=== PATIENT | female | born 1960 | race Caucasian/White ===

== ENCOUNTER → 2017-10-18 | Outpatient (CLI) | payer BC ==
--- NOTE | 2017-10-18 12:57 | CT ---
EXAMINATION TYPE: CT chest w con DATE OF EXAM: 10/18/2017 COMPARISON: 10/18/2017 HISTORY: Posterior chest pain, painful respiration, history of pleurisy CT DLP: 529 mGycm, Automated exposure control for dose reduction was used. CONTRAST: Performed injected with 100 mL of Isovue 300. TECHNIQUE: Axial images were obtained at 5 mm thick sections. Reconstructed images are reviewed on [employer] computer in the coronal plane. FINDINGS: Portion of the thyroid visualized is normal. Posterior infiltrate is in the right apex. This is similar to 03/11/2014 comparison may be some minimal scarring. There is some new irregular infiltrate in the periphery of the posterior lateral right upper lobe. Se mayela 4 image 15. This has a width of approximately 0.8 cm. There is a 0.4 cm nodule within the right posterior midlung. Series 4 image 22. Same level was 0.6 cm irregular area of increased density is present. Small anterior mediastinal density is present within the lingula measuring 0.3 cm. Series 4 image 22. Some groundglass opacities in the posterior lingula approximately 1.1 cm. Series 4 image 25. Tiny spi culated densities in the anterior lingula measuring 0.4 cm. Series 4 image 25. Posterior lateral nodularities are present series 4 image 27 of these measures 0.5-0.6 cm in size. Ir regular densities in the posterior left lower lobe measuring 0.9 cm. Series 4 image 30. Small spicula rebeka nodules in the posterior left lung base periphery measuring 0.4 cm. Series 4 image 36. No enlarged mediastinal or hilar adenopathy is evident. The ascending aorta diameter at the level o f the main pulmonary artery is 3.1 cm. The main pulmonary artery diameter at the bifurcation is 2.[address] sections are obtained through the upper abdomen. Abdomen is essentially unremarkable. IMPRESSIONS: 1. Multiple irregular densities within the bilateral lungs. Given the appearance and multiplicity, ne oplastic, metastatic disease should be considered. Infectious etiologies are not entirely excluded. F indings are a development from 2013. Additional workup is recommended.
== END | disposition home or self-care (01) ==
LOC: RADCTMAIN 08:20
PROVIDERS: ATTEND Internal Medicine
DX: J98.4 Other disorders of lung (principal); R09.1 Pleurisy
CPT/HCPCS: 71260; Q9967

== ENCOUNTER 2017-11-05 08:47 | Day surgery (SDC) | payer BC ==
[2017-11-04 08:12] VITALS: BMI 27.5
[~2017-11-05 08:47] MED LIST: ALBUTEROL NEB (CONC) 2.5 MG/0.5 ML INHALATION ONE; ATROPINE SULFATE 0.4 MG/ML 1 ML VIAL IM ONE; LACTATED RINGERS 1,000 ML IV ONE; LACTATED RINGERS 1,000 ML IV SCH; LIDOCAINE 1% 20 ML VIAL (10MG/ML) FOR IV START INTRADERMA PRN; LIDOCAINE 2% (PF) 20 MG/ML 2 ML AMP INHALATION ONE; Pre Op ABX Message 1 EACH MISC MISCELLANE ONE
[2017-11-05 10:29] VITALS: TEMP 98.8
[2017-11-05] MEDS ORDERED: LACTATED RINGERS 1,000 ML IV ONE (10:29)
[2017-11-05 10:42] LABS: Glucose,Whole Blood 93 mg/dL (75-99)
[2017-11-05] MEDS ORDERED: LIDOCAINE 1% INJ 10MG/ML (20 ML MDV) ONE (10:49)
[2017-11-05] MEDS ORDERED: MIDAZOLAM 2 MG/2 ML VIAL ONE (10:49)
[2017-11-05] MEDS ORDERED: PROPOFOL 10 MG/ML 20 ML VIAL IV ONE (10:49)
[2017-11-05] MEDS ORDERED: GLYCOPYRROLATE 0.2 MG/ML 2 ML VIAL ONE (10:49)
[2017-11-05] MEDS ORDERED: LIDOCAINE 2% INJ 20 MG/ML INTRATRACH ONE (10:55)
[2017-11-05 11:40] VITALS: RESP 16
--- NOTE | 2017-11-05 11:47 | XR ---
EXAMINATION TYPE: XR chest 1V portable DATE OF EXAM: 11/05/2017 COMPARISON: Chest CT October 18, 2017. Chest x-ray December 14, 2014. HISTORY: Post bronchoscopy. TECHNIQUE: Single AP portable frontal view of the chest is obtained. FINDINGS: There is chronic parenchymal change with scattered areas of fibrosis but no suspicious foc al air space opacity, pleural effusion, or pneumothorax seen. The cardiac silhouette size is within normal limits. The osseous structures are intact. IMPRESSION: Chronic parenchymal changes without acute pulmonary process. No sizable pneumothorax aft er bronchoscopy.
[2017-11-05 11:50] VITALS: BP 107/74
[2017-11-05] MEDS ORDERED: IPRATROPIUM-ALBUTEROL 3 ML NEB INHALATION STA (12:29)
[2017-11-05 12:44] VITALS: PULSE 88
--- NOTE | 2017-11-05 12:46 | FL ---
EXAMINATION TYPE: FL bronchoscopy DATE OF EXAM: 11/05/2017 COMPARISON: CT chest 10/18/2017 HISTORY: Lung masses Fluoroscopy support supplied to the referring clinician. See dictated report from pulmonary, 32 seco nds fluoroscopy time supplied, intraoperative image documents the procedure
--- NOTE | 2017-11-05 16:51 | OP ---
OPERATIVE REPORT PROCEDURE: Bronchoscopy airway examination, therapeutic lavage, BAL, lingula, brushes, left upper lobe, transbronchial biopsies, left lower lobe. OPERATORS: 1. Dr. Robertson. 2. Dr. Sheikh. Rossi Raphael CRNA, provided unconscious sedation and general anesthesia. There was informed consent. There was universal timeout. The procedure took place in room #1 [facility]. After the patient was adequately sedated and being fully monitored, the bronchoscope was inserted through the right nostril. It passed through the right nasopharynx into the oropharynx. The hypopharynx was identified and topicalized. The hypopharyngeal structures, including anterior commissure, true cords, false cords, arytenoids, piriform sinuses, right and left valleculae and epiglottis, all appeared normal. After topicalization, bronchoscope was placed through the glottic opening into the trachea. Trachea appeared normal. Tracheal jenise was sharp. The right upper lobe and its 3 segments, right middle lobe and its 2 segments, right lower lobe and its 5 segments were all normal. Likewise, the left side looked relatively normal. Left lower lobe and lingula looked normal. Left upper lobe showed significant purulence. There was some diffuse endobronchial erythema. There was diffuse erythema of the airways. There was some mild mucosal friability. Next, brushes were performed in the left upper lobe. Next, the bronchoscope was wedged into the lingula and the BAL took place. Finally, under fluoroscopic guidance, multiple transbronchial biopsies were performed in the left lower lobe. There were no immediate complications. There was minimal bleeding. There was no obvious pneumothorax under fluoroscopy. We made sure there was adequate hemostasis before the bronchoscope was withdrawn. The bronchoscope was withdrawn. The patient will have a chest x-ray and be recovered. No additional recommendations were made. The specimens were sent to the laboratory for analysis. MMODL / IJN: [id number] /
[2017-11-05 18:58] LABS: Appearance,BF Cloudy; Color,BF Orange
[2017-11-05 18:59] LABS: Mononuclear WBC,Body Fluid 3 %; Nucleated Cells, Body Fluid 875 /uL; Polynuclear WBC,Body Fluid 97 %; RBC, Body Fluid 2325 /uL
== END 2017-11-05 12:56 | disposition home or self-care (01) ==
LOC: ORWHC2ENDO 08:47
PROVIDERS: ATTEND Internal Medicine Critical Care Medicine
DX: J91.8 Pleural effusion in other conditions classified elsewhere (principal); A31.9 Mycobacterial infection, unspecified; K21.9 Gastro-esophageal reflux disease without esophagitis; J45.909 Unspecified asthma, uncomplicated; I49.5 Sick sinus syndrome; E55.9 Vitamin D deficiency, unspecified; Z79.1 Long term (current) use of non-steroidal anti-inflammatories (NSAID); Z79.51 Long term (current) use of inhaled steroids; Z79.52 Long term (current) use of systemic steroids; Z79.899 Other long term (current) drug therapy; Z86.19 Personal history of other infectious and parasitic diseases
CPT/HCPCS: 94640 ×2; 88104; 88108; 88305; 89050; 87252; 87070; 87205; 87116; 87102; 87206; 71045; 31628; 31623; 31624; J2001 ×3; J2250; J0461; J2704; 87496; 87498; 87502; 87529; 87634; 87798

== ENCOUNTER 2017-11-08 04:19 | Emergency (ER) | payer BC ==
[2017-11-08] MEDS ORDERED: ACETAMINOPHEN TAB 500 MG TAB PO STA (04:38)
[2017-11-08] MEDS ORDERED: IBUPROFEN 600 MG TAB PO STA (04:38)
--- NOTE | 2017-11-08 04:44 | ED ---
General Adult HPI - General Chief complaint: Upper Respiratory Infection Stated complaint: Fever Time Seen by Provider: 11/08/17 04:25 Source: patient, RN notes reviewed Mode of arrival: ambulatory Limitations: no limitations - History of Present Illness Initial comments: This is a 57-year-old female presents emergency Department complaining of a cough and a fever. Patient states she's not coughing up any sputum. Patient states she had a bronchoscopy 3 days ago she spoke with her dinker and the dinker told her to come in if she started spiking a fever so she came to the hospital today. Patient denies any chest pain or palpitations. Patient denies any abdominal pain patient denies nausea vomiting diarrhea. Patient denies any lightheadedness or dizziness. Patient does states she has a mild headache. - Related Data Home Medications Medication Instructions Recorded Confirmed Fluticasone/Salmeterol [Advair 2 puff INHALATION DAILY 01/05/14 11/08/17 500-50 Diskus] Montelukast [Singulair] 10 mg PO DAILY 01/05/14 11/08/17 Omeprazole [PriLOSEC] 40 mg PO DAILY 01/05/14 11/08/17 Albuterol Inhaler [Ventolin Hfa 2 puff INHALATION DIRECTED PRN 04/25/1611/08 Inhaler] Budesonide [Pulmicort Flexhaler] 1 puff INHALATION BID 04/25/16 11/08/17 Calcium Carbonate [Tums] 500 mg PO DIRECTED PRN 04/25/16 11/08/17 Ergocalciferol [Vitamin D2] 50,000 unit PO WE 04/25/16 11/08/17 Fludrocortisone [Florinef] 0.1 mg PO DAILY 04/25/16 11/08/17 Potassium Tab 1 tab PO QAM 04/25/16 11/08/17 Albuterol Nebulized [Ventolin 2.5 mg INHALATION DAILY PRN 11/04/17 11/08/17 Nebulized] Dicyclomine [Bentyl] 10 mg PO TID PRN 11/04/17 11/08/17 Loratadine [Claritin] 10 mg PO DAILY 11/04/17 11/08/17 Meloxicam [Mobic] 7.5 mg PO DAILY 11/04/17 11/08/17 Sucralfate [Carafate] 1 gm PO BID 11/04/17 11/08/17 Previous Rx's Medication Instructions Recorded Levofloxacin [Levaquin] 750 mg PO DAILY #10 tab 11/08/17 Allergies Allergy/AdvReac Type Severity Reaction Status Date / Time adhesive Allergy blisters Verified 11/08/17 04:26 pneumococcal 23-valent Allergy chest pain Verified 11/08/17 04:26 polysacchari and dyspnea [From Pneumovax 23] cloth tape Allergy blisters Uncoded 11/08/17 04:26 Review of Systems ROS Statement: Those systems with pertinent positive or pertinent negative responses have been documented in the HPI. ROS Other: All systems not noted in ROS Statement are negative. Past Medical History Past Medical History: Asthma, COPD, GERD/Reflux, Pneumonia, Skin Disorder, Syncope Additional Past Medical History / Comment(s): hx migraines, indigestion and heartburn, POTS, hiatal hernia, hx ulcer, hx colitis, brown patch left leg, MAC lung infection History of Any Multi-Drug Resistant Organisms: None Reported Past Surgical History: Adenoidectomy, Hysterectomy, Tonsillectomy, Tubal Ligation Additional Past Surgical History / Comment(s): COLONOSCOPY/EGD, bronchoscopy, lung biopsy Past Anesthesia/Blood Transfusion Reactions: Postoperative Nausea & Vomiting ( PONV) Past Psychological History: No Psychological Hx Reported Smoking Status: Never smoker - Past Family History Mother Family Medical History: No Reported History General Exam - General Exam Comments Initial Comments: GENERAL: Patient is well-developed and well-nourished. Patient is nontoxic and well- hydrated and is in mild distress. ENT: Neck is soft and supple. No significant lymphadenopathy is noted. Oropharynx is clear. Moist mucous membranes. Neck has full range of motion without eliciting any pain. EYES: The sclera were anicteric and conjunctiva were pink and moist. Extraocular movements were intact and pupils were equal round and reactive to light. Eyelids were unremarkable. PULMONARY: Unlabored respirations. Good breath sounds bilaterally. No audible rales rhonchi or wheezing was noted. CARDIOVASCULAR: There is a regular rate and rhythm without any murmurs gallops or rubs. ABDOMEN: Soft and nontender with normal bowel sounds. No palpable organomegaly was noted. There is no palpable pulsatile mass. SKIN: Skin is clear with no lesions or rashes and otherwise unremarkable. NEUROLOGIC: Patient is alert and oriented x3. Cranial nerves II through XII are grossly intact. Motor and sensory are also intact. Normal speech, volume and content. Symmetrical smile. MUSCULOSKELETAL: Normal extremities with adequate strength and full range of motion. LYMPHATICS: No significant lymphadenopathy is noted PSYCHIATRIC: Normal psychiatric evaluation. Normal interpersonal interactions appears functionally intact in deals appropriately with others. No signs of depression. No signs of anxiety. Limitations: no limitations Course Vital Signs 11/08/17 11/08/17 04:23 05:20 Temperature 101.4 F H Pulse Rate 98 78 Respiratory 16 18 Rate Blood Pressure 107/65 112/74 O2 Sat by Pulse 93 L 97 Oximetry Medical Decision Making - Medical Decision Making Chest x-ray shows no acute abnormality. I started the patient on Levaquin and told to follow-up with Dr. Adhikari today. - Lab Data Result diagrams: 11/08/17 04:52 11/08/17 04:52 Lab Results 11/08/17 11/08/17 11/08/17 Range/Units 04:47 04:52 04:52 WBC 10.3 (3.8-10.6) k/uL RBC 4.91 (3.80-5.40) m/uL Hgb 14.0 (11.4-16.0) gm/dL Hct 42.4 (34.0-46.0) % MCV 86.3 (80.0-100.0) fL MCH 28.4 (25.0-35.0) pg MCHC 33.0 (31.0-37.0) g/dL RDW 15.1 (11.5-15.5) % Plt Count 174 (150-450) k/uL Neutrophils % 80 % Lymphocytes % 12 % Monocytes % 5 % Eosinophils % 2 % Basophils % 0 % Neutrophils # 8.3 H (1.3-7.7) k/uL Lymphocytes # 1.2 (1.0-4.8) k/uL Monocytes # 0.5 (0-1.0) k/uL Eosinophils # 0.2 (0-0.7) k/uL Basophils # 0.0 (0-0.2) k/uL Sodium 141 (137-145) mmol/L Potassium 3.9 (3.5-5.1) mmol/L Chloride 105 (98-107) mmol/L Carbon Dioxide 23 (22-30) mmol/L Anion Gap 13 mmol/L BUN 13 (7-17) mg/dL Creatinine 0.80 (0.52-1.04) mg/dL Est GFR (CKD-EPI)AfAm >90 (>60 ml/min/1.73 sqM) Est GFR (CKD-EPI)NonAf 84 (>60 ml/min/1.73 sqM) Glucose 107 H (74-99) mg/dL Plasma Lactic Acid Elio (0.7-2.0) mmol/L Calcium 9.4 (8.4-10.2) mg/dL Total Bilirubin 0.7 (0.2-1.3) mg/dL AST 20 (14-36) U/L ALT 14 (9-52) U/L Alkaline Phosphatase 122 (38-126) U/L Total Protein 6.9 (6.3-8.2) g/dL Albumin 4.0 (3.5-5.0) g/dL Urine Color Yellow Urine Appearance Cloudy H (Clear) Urine pH 6.5 (5.0-8.0) Ur Specific [place] 1.029 (1.001-1.035) Urine Protein 1+ H (Negative) Urine Glucose (UA) Negative (Negative) Urine Ketones Trace H (Negative) Urine Blood Negative (Negative) Urine Nitrite Negative (Negative) Urine Bilirubin Negative (Negative) Urine Urobilinogen 8.0 (<2.0) mg/dL Ur Leukocyte Esterase Negative (Negative) Urine RBC 1 (0-5) /hpf Urine WBC 3 (0-5) /hpf Ur Squamous Epith Cells 1 (0-4) /hpf Calcium Oxalate Crystal Many H (None) /hpf Urine Mucus Occasional H (None) /hpf Influenza Type A RNA (Not Detectd) Influenza Type B (PCR) (Not Detectd) 11/08/17 11/08/17 Range/Units 04:52 04:52 WBC (3.8-10.6) k/uL RBC (3.80-5.40) m/uL Hgb (11.4-16.0) gm/dL Hct (34.0-46.0) % MCV (80.0-100.0) fL MCH (25.0-35.0) pg MCHC (31.0-37.0) g/dL RDW (11.5-15.5) % Plt Count (150-450) k/uL Neutrophils % % Lymphocytes % % Monocytes % % Eosinophils % % Basophils % % Neutrophils # (1.3-7.7) k/uL Lymphocytes # (1.0-4.8) k/uL Monocytes # (0-1.0) k/uL Eosinophils # (0-0.7) k/uL Basophils # (0-0.2) k/uL Sodium (137-145) mmol/L Potassium (3.5-5.1) mmol/L Chloride (98-107) mmol/L Carbon Dioxide (22-30) mmol/L Anion Gap mmol/L BUN (7-17) mg/dL Creatinine (0.52-1.04) mg/dL Est GFR (CKD-EPI)AfAm (>60 ml/min/1.73 sqM) Est GFR (CKD-EPI)NonAf (>60 ml/min/1.73 sqM) Glucose (74-99) mg/dL Plasma Lactic Acid Elio 0.9 (0.7-2.0) mmol/L Calcium (8.4-10.2) mg/dL Total Bilirubin (0.2-1.3) mg/dL AST (14-36) U/L ALT (9-52) U/L Alkaline Phosphatase (38-126) U/L Total Protein (6.3-8.2) g/dL Albumin (3.5-5.0) g/dL Urine Color Urine Appearance (Clear) Urine pH (5.0-8.0) Ur Specific Collbran (1.001-1.035) Urine Protein (Negative) Urine Glucose (UA) (Negative) Urine Ketones (Negative) Urine Blood (Negative) Urine Nitrite (Negative) Urine Bilirubin (Negative) Urine Urobilinogen (<2.0) mg/dL Ur Leukocyte Esterase (Negative) Urine RBC (0-5) /hpf Urine WBC (0-5) /hpf Ur Squamous Epith Cells (0-4) /hpf Calcium Oxalate Crystal (None) /hpf Urine Mucus (None) /hpf Influenza Type A RNA Not Detected (Not Detectd) Influenza Type B (PCR) Not Detected (Not Detectd) Disposition Clinical Impression: Bronchitis Disposition: HOME SELF-CARE Condition: Good Instructions: Acute Bronchitis (ED) Prescriptions: Levofloxacin [Levaquin] 750 mg PO DAILY #10 tab Is patient prescribed a controlled substance at d/c from ED?: No Referrals: Alonso Robertson DO [Primary Care Provider] - 1-2 days Time of Disposition: 05:43
[2017-11-08] MEDS: SODIUM CHLORIDE 0.9% 500 ML IV SCH ×2 (05:04→05:24)
[2017-11-08 05:05] LABS: Basophils % (A) 0 %; Eosinophils # (A) 0.2 k/uL (0-0.7); Eosinophils % (A) 2 %; HCT 42.4 % (34.0-46.0); Lymphocytes # (A) 1.2 k/uL (1.0-4.8); Lymphocytes % (A) 12 %; MCH 28.4 pg (25.0-35.0); MCV 86.3 fL (80.0-100.0); Mean Platelet Volume 9.1; Monocytes # (A) 0.5 k/uL (0-1.0); Monocytes % (A) 5 %; Neutrophils # (A) 8.3 k/uL (1.3-7.7); Neutrophils % (A) 80 %; Platelet Count 174 k/uL (150-450); RBC 4.91 m/uL (3.80-5.40); RDW 15.1 % (11.5-15.5); WBC 10.3 k/uL (3.8-10.6)
[2017-11-08 05:16] LABS: ALT 14 U/L (9-52); AST 20 U/L (14-36); Alkaline Phosphatase 122 U/L (38-126); Anion Gap 13 mmol/L; Blood Urea Nitrogen 13 mg/dL (7-17); Calcium 9.4 mg/dL (8.4-10.2); Carbon Dioxide 23 mmol/L (22-30); Chloride 105 mmol/L (98-107); Glucose 107 mg/dL (74-99); Potassium 3.9 mmol/L (3.5-5.1); Sodium 141 mmol/L (137-145); Total Bilirubin 0.7 mg/dL (0.2-1.3); Total Protein 6.9 g/dL (6.3-8.2)
[2017-11-08 05:23] VITALS: RESP 18
[2017-11-08 05:23] LABS: Appearance,Urine Cloudy (Clear); Bilirubin,Urine Negative (Negative); Blood,Urine Negative (Negative); Calcium Oxalate Crystals,Urine Many /hpf; Color,Urine Yellow; Glucose,Urine (UA) Negative (Negative); Ketones,Urine Trace (Negative); Leukocyte Esterase,Urine Negative (Negative); Mucus,Urine Occasional /hpf; Nitrite,Urine Negative (Negative); PH, Urine 6.5 (5.0-8.0); Protein,Urine 1+ (Negative); RBC,Urine 1 /hpf (0-5); Specific Gravity,Urine 1.029 (1.001-1.035); Squamous Epithelial Cell,Urine 1 /hpf (0-4); WBC,Urine 3 /hpf (0-5)
--- NOTE | 2017-11-08 05:33 | XR ---
EXAM: XR Chest, 2 Views CLINICAL HISTORY: Fever TECHNIQUE: Frontal and lateral views of the chest. COMPARISON: 11/05/17 FINDINGS: Lungs: Suspect COPD. Small patchy airspace opacity over right upper/middle lung zone, unchanged, likely related to chronic changes reported on comparison study. Superimposed pneumonia in this region cannot be excluded. Pleural space: Unremarkable. No pneumothorax. Heart: Unremarkable. No cardiomegaly. Mediastinum: Unremarkable. Bones/joints: Unremarkable for the patient's age. IMPRESSION: No substantial change
[2017-11-08] MEDS ORDERED: LEVOFLOXACIN 750 MG TAB PO STA (05:44)
[2017-11-08 05:57] VITALS: BP 111/64; PULSE 72; TEMP 98.4
== END 2017-11-08 05:55 | disposition home or self-care (01) ==
LOC: EC 04:19
DX: J44.9 Chronic obstructive pulmonary disease, unspecified (principal); K21.9 Gastro-esophageal reflux disease without esophagitis; Z79.1 Long term (current) use of non-steroidal anti-inflammatories (NSAID); Z79.51 Long term (current) use of inhaled steroids; Z79.899 Other long term (current) drug therapy; Z88.8 Allergy status to other drugs, medicaments and biological substances; Z91.048 Other nonmedicinal substance allergy status
CPT/HCPCS: 36415; 71046; 80053; 81001; 83605; 85025; 87040; 87086; 87502; 99283

== ENCOUNTER → 2017-12-17 | Outpatient (CLI) | payer BC ==
[2017-12-17 13:46] LABS: ALT 25 U/L (9-52); AST 21 U/L (14-36); Albumin 4.2 g/dL (3.5-5.0); Alkaline Phosphatase 99 U/L (38-126); Anion Gap 13 mmol/L; Blood Urea Nitrogen 11 mg/dL (7-17); Calcium 9.3 mg/dL (8.4-10.2); Carbon Dioxide 25 mmol/L (22-30); Chloride 103 mmol/L (98-107); Glucose 78 mg/dL (74-99); Potassium 4.5 mmol/L (3.5-5.1); Sodium 141 mmol/L (137-145); Total Bilirubin 0.4 mg/dL (0.2-1.3); Total Protein 7.2 g/dL (6.3-8.2)
== END | disposition home or self-care (01) ==
LOC: LABWHC1 12:24
PROVIDERS: ATTEND Internal Medicine Critical Care Medicine
DX: Z51.81 Encounter for therapeutic drug level monitoring (principal); Z79.899 Other long term (current) drug therapy
CPT/HCPCS: 36415; 80053

== ENCOUNTER → 2018-05-15 | Outpatient (CLI) | payer BC ==
--- NOTE | 2018-05-16 08:40 | CT ---
EXAMINATION TYPE: CT chest w con DATE OF EXAM: 05/15/2018 COMPARISON: 10/18/2017 HISTORY: f/u nodules, nonspecified abnormal lung field findings CT DLP: 317.8 mGycm, Automated exposure control for dose reduction was used. CONTRAST: Performed injected with 100 mL of Isovue 300. TECHNIQUE: Axial images were obtained at 5 mm thick sections. Reconstructed images are reviewed on t he computer in the coronal plane. FINDINGS: Portion of the thyroid visualized is normal. Bilateral apical scarring is present more so on the right. This appears stable. There is a 0.6 x 0.9 cm density in the right upper lung field. This appears to be developing from com parison. Series 4 image 11. Additional area of increased density adjacent and slightly posterior was present previously currently measuring 0.7 cm. Series 4 image 10. There is some increased infiltrate through the medial posterior right upper lobe series 4 image 13. T his appears increased from comparison. There is a 0.5 cm area of increased density posterior right lung field. Series 4 image 15. This was p resent previously but appears somewhat denser than comparison. There is an area of increased density within the right midlung measuring 0.7 cm. This may be 1 mm lar jr than comparison. Series 4 image 22. A 0.5 cm density is in the periphery of the left midlung. Ser ies 4 image 25. This is stable. May be a new 0.3 cm density posterior medial right lung. Series 4 bishop ge 31. This is in the periphery. There are additional subtle areas of pneumonitis present bilaterally. There is note made of an azygos fissure. No enlarged mediastinal or hilar adenopathy is evident. The ascending aorta diameter at the level o f the main pulmonary artery is 3.0 cm. The main pulmonary artery diameter at the bifurcation is 2.[address] sections are obtained through the upper abdomen. Abdomen is essentially unremarkable. IMPRESSIONS: 1. Scattered bilateral focal densities and areas of pneumonitis. Most are relatively stable with some areas slightly increased in density with minimal increase in size in the couple focal areas compared to October 2017. Overall there appears to be subtle progression.
== END | disposition home or self-care (01) ==
LOC: RADCTMAIN 16:25
PROVIDERS: ATTEND Internal Medicine Critical Care Medicine
DX: J18.9 Pneumonia, unspecified organism (principal); Z88.7 Allergy status to serum and vaccine
CPT/HCPCS: 71260; Q9967

== ENCOUNTER 2018-08-07 10:58 | Day surgery (SDC) | payer BC ==
[2018-08-05 14:21] VITALS: BMI 30.7
[~2018-08-07 10:58] MED LIST changes: -ALBUTEROL NEB (CONC) 2.5 MG/0.5 ML INHALATION ONE; +DEXAMETHASONE SOD PHOSPHATE 10 MG/ML 1 ML VIAL IV ONE; +LIDOCAINE 2% (PF) 20 MG/ML 10 ML AMP INHALATION ONE; -LIDOCAINE 2% (PF) 20 MG/ML 2 ML AMP INHALATION ONE; +LIDOCAINE VISCOUS 2% 15 ML CUP MUCOUS MEM ONE
[2018-08-07 11:29] LABS: Glucose,Whole Blood 78 mg/dL (75-99)
[2018-08-07 11:31] VITALS: TEMP 97.1
[2018-08-07] MEDS: ALBUTEROL NEB (CONC) 2.5 MG/0.5 ML INHALATION ONE ×2 (11:44→11:54)
[2018-08-07] MEDS ORDERED: LIDOCAINE 1% INJ 10MG/ML (20 ML MDV) ONE (12:17)
[2018-08-07] MEDS ORDERED: PROPOFOL 10 MG/ML 20 ML VIAL IV ONE (12:17)
[2018-08-07] MEDS ORDERED: MIDAZOLAM 2 MG/2 ML VIAL ONE (12:17)
[2018-08-07] MEDS ORDERED: KETAMINE 10 MG/ML 20 ML VIAL ONE (12:17)
[2018-08-07] MEDS ORDERED: fentaNYL (PF) 50 MCG/ML 2 ML AMP ONE (12:17)
[2018-08-07] MEDS ORDERED: LIDOCAINE 2% INJ 20 MG/ML INTRATRACH ONE (12:30)
[2018-08-07] MEDS ORDERED: MEPERIDINE 50 MG/ML SYRINGE IVP ONE (13:02)
[2018-08-07] MEDS ORDERED: ALBUTEROL NEBULIZED 2.5 MG/3 ML INHALATION STA (13:09)
[2018-08-07 14:06] VITALS: BP 158/64; PULSE 94; RESP 18
--- NOTE | 2018-08-07 19:59 | PCN ---
PROCEDURE NOTE PROCEDURE: Bronchoscopy and BAL, right middle lobe and left lower lobe. 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 OPERATORS: 1. Alonso Robertson MD. 2. Dr. Freya Sheikh. PROCEDURE DESCRIPTION: There was informed consent. There was universal timeout. After the patient was adequately sedated and being fully monitored, the bronchoscope was inserted through the right nostril. It passed through the right nasopharynx into the oropharynx. The hypopharynx was identified and topicalized. The hypopharyngeal structures, including anterior commissure, true cords, false cords, arytenoids, piriform sinuses, right and left valleculae and epiglottis, all appeared relatively normal. There were some secretions noted in the hypopharynx. After topical sedation, the bronchoscope was pushed through the glottic opening into the trachea. Trachea appeared relatively normal. Tracheal jenise was sharp. The right and left mainstem were topicalized. The right upper lobe and its 3 segments, the right middle lobe and its 2 segments, the right lower lobe and its 5 segments, left upper lobe proper and its 2 segments, the lingula and its 2 segments, and the left lower lobe and its 4 segments all had similar findings of diffuse airway bronchitis. There was mucosal erythema and hyperemia. There was some mucosal friability. The blood vessels were engorged. There was thick purulent material noted throughout both lungs. It was noted in all segments in the lungs and in all lobes. It was suctioned without difficulty. It did look yellow and was purulent-looking. Next, the bronchoscope was wedged into the right middle lobe. The BAL took place. Next another trap was placed on the bronchoscope and another BAL was done in the left lower lobe. The patient tolerated the procedure well and the bronchoscope was withdrawn. There were no immediate complications. The patient tolerated the procedure well. The patient will be recovered. MMODL / IJN: [id number] /
== END 2018-08-07 14:14 | disposition home or self-care (01) ==
LOC: ORWHC2ENDO 10:58
PROVIDERS: ATTEND Internal Medicine Critical Care Medicine
DX: J20.9 Acute bronchitis, unspecified (principal); E55.9 Vitamin D deficiency, unspecified; K21.0 Gastro-esophageal reflux disease with esophagitis; I95.1 Orthostatic hypotension; J45.909 Unspecified asthma, uncomplicated; K52.9 Noninfective gastroenteritis and colitis, unspecified; Z79.51 Long term (current) use of inhaled steroids; Z79.899 Other long term (current) drug therapy; Z79.1 Long term (current) use of non-steroidal anti-inflammatories (NSAID); Z79.890 Hormone replacement therapy; Z79.52 Long term (current) use of systemic steroids; Z88.7 Allergy status to serum and vaccine; Z91.09 Other allergy status, other than to drugs and biological substances
CPT/HCPCS: 94640 ×2; 87798 ×3; 87496; 87498; 87529 ×2; 88108; 88305; 88312; 87252; 87502; 87634; 87070; 87205; 87116; 87102; 87206; 31624; J2001 ×3; J2250; J0461; J2175; J3010; J2704

== ENCOUNTER → 2018-09-12 | Outpatient (CLI) | payer BC ==
[2018-09-12 15:37] LABS: Basophils % (A) 1 %; Eosinophils # (A) 0.1 k/uL (0-0.7); Eosinophils % (A) 1 %; HCT 48.2 % (34.0-46.0); HGB 15.4 gm/dL (11.4-16.0); Lymphocytes # (A) 1.5 k/uL (1.0-4.8); Lymphocytes % (A) 24 %; MCH 28.6 pg (25.0-35.0); MCHC 32.1 g/dL (31.0-37.0); MCV 89.3 fL (80.0-100.0); Mean Platelet Volume 7.4; Monocytes # (A) 0.4 k/uL (0-1.0); Monocytes % (A) 6 %; Neutrophils # (A) 4.2 k/uL (1.3-7.7); Neutrophils % (A) 66 %; Platelet Count 212 k/uL (150-450); RBC 5.39 m/uL (3.80-5.40); RDW 13.7 % (11.5-15.5); WBC 6.4 k/uL (3.8-10.6)
[2018-09-13 02:11] LABS: Albumin 4.6 g/dL (3.80-4.90); Albumin/Globulin Ratio 1.7 (1.60-3.17); Anion Gap 12.4 mmol/L (4.00-12.00); Calcium 9.8 mg/dL (8.7-10.3); Carbon Dioxide 22.6 mmol/L (21.6-31.8); Globulin 2.7 g/dL (1.6-3.3); Potassium 4.4 mmol/L (3.5-5.5); Total Bilirubin 0.5 mg/dL (0.2-1.2); Total Protein 7.3 g/dL (6.2-8.2)
== END | disposition home or self-care (01) ==
LOC: LABWHC1 15:14
PROVIDERS: ATTEND Internal Medicine Critical Care Medicine
DX: A31.9 Mycobacterial infection, unspecified (principal)
CPT/HCPCS: 36415; 80053; 85025

== ENCOUNTER 2019-01-01 10:36 | Day surgery (SDC) | payer BC ==
[2018-12-31 09:09] VITALS: BMI 28.6
[~2019-01-01 10:36] MED LIST changes: +ALBUTEROL NEB (CONC) 2.5 MG/0.5 ML INHALATION ONE; -DEXAMETHASONE SOD PHOSPHATE 10 MG/ML 1 ML VIAL IV ONE; -LACTATED RINGERS 1,000 ML IV ONE; -LIDOCAINE 2% (PF) 20 MG/ML 10 ML AMP INHALATION ONE; +LIDOCAINE 2% (PF) 20 MG/ML 5 ML VIAL INHALATION ONE; -LIDOCAINE VISCOUS 2% 15 ML CUP MUCOUS MEM ONE; +LIDOCAINE VISCOUS 300 MG/15 ML CUP MUCOUS MEM ONE; -Pre Op ABX Message 1 EACH MISC MISCELLANE ONE; +SODIUM CHLORIDE 0.9% 1,000 ML IV SCH
[2019-01-01 11:00] VITALS: TEMP 972
[2019-01-01] MEDS ORDERED: LIDOCAINE 1% INJ 10MG/ML (20 ML MDV) ONE (12:10)
[2019-01-01] MEDS ORDERED: PROPOFOL 10 MG/ML 20 ML VIAL IV ONE (12:10)
[2019-01-01] MEDS ORDERED: LIDOCAINE 2% INJ 20 MG/ML INTRATRACH ONE (12:22)
--- NOTE | 2019-01-01 12:53 | PCN ---
PROCEDURE NOTE PROCEDURE: Bronchoscopy, airway examination, therapeutic lavage, BAL right middle lobe. 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 POSTOPERATIVE DIAGNOSIS: Recurrent Mycobacterium avium complex infection. OPERATORS: Dr. Robertson and Dr. Sheikh. PROCEDURE: There was informed consent. There was universal timeout. Anesthesia provided general anesthesia/unconscious sedation. After the patient was adequately sedated and being fully monitored, the bronchoscope was inserted through the right nostril. It passed through the right nasopharynx into the oropharynx. The hypopharynx was identified. Anterior commissure, true cords, false cords, arytenoids, piriform sinuses, right and left vallecula and epiglottis all appear relatively normal. The glottic opening was topicalized and bronchoscope was pushed through the glottic opening into the trachea. There were minimal secretions in the trachea. Tracheal jenise was sharp. The right and left mainstem were topicalized. Right upper lobe and its 3 segments, right middle lobe and its 2 segments, right lower lobe and its 5 segments, left upper lobe proper and its 2 segments, the lingula and its 2 segments and the left lower lobe and its 4 segments all have similar findings of mild bronchitic changes. There was mild erythema and hyperemia of the airways. There was no mucosal friability. There was no dominant mass. Secretions were mostly thin and a bit foamy. There was no bleeding. After any secretions removed, the bronchoscope was wedged into the right middle lobe. The BAL took place. The patient tolerated the procedure well. The bronchoscope was withdrawn and the patient will be recovered. There was no immediate complication. The specimens were sent to the laboratory for analysis. Specifically, we are looking to see if we sterilized the low respiratory tract from her recurrent Mycobacterium avium complex infection. MMODL / IJN: [id number] /
[2019-01-01 12:58] VITALS: BP 110/63; PULSE 86; RESP 18
[2019-01-01 17:26] LABS: Appearance,BF Cloudy
[2019-01-01 17:37] LABS: RBC, Body Fluid 380 /uL
[2019-01-01 17:38] LABS: Nucleated Cells, Body Fluid 1380 /uL
[2019-01-01 17:39] LABS: Mononuclear WBC,Body Fluid 5 %; Polynuclear WBC,Body Fluid 95 %; Total Cells Counted,Body Fluid 100
== END 2019-01-01 13:05 | disposition home or self-care (01) ==
LOC: ORWHC2ENDO 10:36
PROVIDERS: ATTEND Internal Medicine Critical Care Medicine
DX: A31.0 Pulmonary mycobacterial infection (principal); E55.9 Vitamin D deficiency, unspecified; J45.909 Unspecified asthma, uncomplicated; K52.9 Noninfective gastroenteritis and colitis, unspecified; I49.5 Sick sinus syndrome; Z83.3 Family history of diabetes mellitus; Z90.710 Acquired absence of both cervix and uterus; Z87.01 Personal history of pneumonia (recurrent); Z87.09 Personal history of other diseases of the respiratory system; Z79.1 Long term (current) use of non-steroidal anti-inflammatories (NSAID); Z79.51 Long term (current) use of inhaled steroids; Z79.899 Other long term (current) drug therapy; Z79.890 Hormone replacement therapy; Z88.5 Allergy status to narcotic agent; Z91.09 Other allergy status, other than to drugs and biological substances; Z88.7 Allergy status to serum and vaccine
CPT/HCPCS: 94640; 88108; 88305; 89050; 87252; 87070; 87205; 87116; 87102; 87206; 31624; J2001 ×3; J0461; J2704; 87496; 87498; 87502; 87529; 87634; 87798

== ENCOUNTER 2019-04-07 20:08 | Emergency (ER) | payer BC ==
[2019-04-07 20:16] VITALS: TEMP 97.9
[2019-04-07] MEDS: SODIUM CHLORIDE 0.9% 500 ML 500 ML IV SCH ×2 (21:58→21:59)
--- NOTE | 2019-04-07 22:16 | ED ---
SOB HPI - General Chief Complaint: Shortness of Breath Stated Complaint: SOB & Chest pain Source: patient Mode of arrival: wheelchair Limitations: no limitations - History of Present Illness Initial Comments: Nicole is a 58 yo female with extensive PMH most significant for chronic lung disease, history of spontaneous pneumothorax and currently being treated for fungal pneumonia with oral antifungal medications. Patient presents the ER today for evaluation of worsening shortness of breath this evening. Patient reports that she feels that there is a catch in her lung and she just can't take a deep breath. She reports that this began around 4 PM this evening and has been persistent. She denies any significant pain or burning she's had with previous episodes of pleurisy or pneumothorax. Patient reports she's been on her current antifungal regimen for the past week, before that she was on a different antifungal had too many side effects. She follows closely with her p ulmonologist Dr. Robertson as well as infectious disease specialist Dr. Gliman. - Related Data Home Medications Medication Instructions Recorded Confirmed Montelukast [Singulair] 10 mg PO DAILY 01/05/14 04/07/19 Omeprazole [PriLOSEC] 40 mg PO DAILY 01/05/14 04/07/19 Albuterol Inhaler [Ventolin Hfa 2 puff INHALATION DIRECTED PRN 04/25/16 04/07/19 Inhaler] Ergocalciferol [Vitamin D2] 50,000 unit PO WE 04/25/16 04/07/19 Fludrocortisone [Florinef] 0.1 mg PO DAILY 04/25/16 04/07/19 Albuterol Nebulized [Ventolin 2.5 mg INHALATION DAILY PRN 11/04/17 04/07/19 Nebulized] Sucralfate [Carafate] 1 gm PO QID PRN 11/04/17 04/07/19 Amikacin Liposomal/Neb.accessr 1 dose INHALATION DAILY 08/05/18 04/07/19 [Arikayce 590 mg/8.4 ml Vial] Azithromycin [Zithromax] 500 mg PO MOWEFR 08/05/18 04/07/19 Ethambutol [Myambutol] 1,200 mg PO MOWEFR 08/05/18 04/07/19 Nystatin 15 gm TP DIRECTED PRN 08/05/18 04/07/19 Potassium Gluconate 595 mg PO DAILY 08/05/18 04/07/19 Cetirizine HCl [Zyrtec] 10 mg PO DAILY 04/07/19 04/07/19 Dicyclomine HCl 10 mg PO TID PRN 04/07/19 04/07/19 Fluticasone Propion/Salmeterol 2 puff INHALATION DAILY 04/07/19 04/07/19 [Wixela 500-50 Inhub] Posaconazole [Noxafil] 300 mg PO DAILY 04/07/19 04/07/19 Triamcinolone 0.1% Cream [Kenalog 1 applicatio TOPICAL TID 04/07/19 04/07/19 0.1% Cream] Vitamin C/Biotin [Hair, Skin and 1 tab PO DAILY 04/07/19 04/07/19 Nails] Allergies Allergy/AdvReac Type Severity Reaction Status Date / Time adhesive Allergy blisters Verified 04/07/19 21:12 from cloth tape pneumococcal 23-valent Allergy chest pain Verified 04/07/19 21:12 polysacchari and dyspnea [From Pneumovax 23] meperidine [From Demerol] AdvReac Dyspnea Verified 04/07/19 21:12 cloth tape Allergy blisters Uncoded 04/07/19 20:16 Review of Systems ROS Statement: Those systems with pertinent positive or pertinent negative responses have been documented in the HPI. ROS Other: All systems not noted in ROS Statement are negative. 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 History of Any Multi-Drug Resistant Organisms: None Reported Past Surgical History: Adenoidectomy, Hysterectomy, Tonsillectomy, Tubal Ligati on Additional Past Surgical History / Comment(s): COLONOSCOPY/EGD,several b ronchoscopy, lung biopsy,LASIK Past Anesthesia/Blood Transfusion Reactions: Postoperative Nausea & Vomiting (PONV) Past Psychological History: No Psychological Hx Reported Smoking Status: Never smoker Past Alcohol Use History: None Reported Past Drug Use History: None Reported - Past Family History Mother Family Medical History: No Reported History General Exam - General Exam Comments Initial Comments: Physical Exam GENERAL: Patient is well-developed and well-nourished. Patient is nontoxic and well- hydrated and is in no distress. HENT: Normocephalic, Atraumatic. EYES: PERRL, EOMI PULMONARY: Unlabored respirations. No audible rales rhonchi or wheezing was noted. CARDIOVASCULAR: There is a regular rate and rhythm without any murmurs gallops or rubs. ABDOMEN: Soft and nontender with normal bowel sounds. SKIN: Skin is clear with no lesions or rashes and otherwise unremarkable. : Deferred NEUROLOGIC: Patient is alert and oriented x3. Moving all extremities spontaneously MUSCULOSKELETAL: Normal extremities with adequate strength and full range of motion. No lower extremity swelling or edema. No calf tenderness. PSYCHIATRIC: Normal psychiatric evaluation. Limitations: no limitations Course Vital Signs 04/07/19 04/08/19 20:13 02:25 Temperature 97.9 F 97.9 F Pulse Rate 90 70 Respiratory 22 20 Rate Blood Pressure 157/86 121/66 O2 Sat by Pulse 98 93 L Oximetry Medical Decision Making - Medical Decision Making The patient was seen and evaluated history is obtained from the patient has been a bedside as well as review of medical record This is a 58 her old female extensive past pulmonary history currently being treated for MAC pneumonia as well as fungal pneumonia. Patient presenting with pleuritic left posterior chest pain, patient has a history of spontaneous pneumothorax To ensure that she was not experiencing a pneumothorax at this time. Labs and imaging ordered Chest x-ray is no signs of pneumothorax Labs her baseline, I discussed the patient option for admission for further evaluation by her strategic marketing associate infectious disease specialist however patient for discharge home at this time. Patient seemed hemodynamically stable oxygen s aturation in the low 90s which patient reports is her normal, she does have supplemental oxygen at home. She uses as needed. Patient will plan for discharge home and outpatient follow-up with pulmonology and infectious disease. - Lab Data Result diagrams: 04/07/19 21:46 04/07/19 21:46 Lab Results 04/07/19 04/07/19 04/07/19 Range/Units 21:46 21:46 21:46 WBC 9.6 (3.8-10.6) k/uL RBC 4.54 (3.80-5.40) m/uL Hgb 13.2 (11.4-16.0) gm/dL Hct 41.2 (34.0-46.0) % MCV 90.8 (80.0-100.0) fL MCH 29.1 (25.0-35.0) pg MCHC 32.1 (31.0-37.0) g/dL RDW 13.3 (11.5-15.5) % Plt Count 166 (150-450) k/uL Neutrophils % 74 % Lymphocytes % 18 % Monocytes % 6 % Eosinophils % 1 % Basophils % 0 % Neutrophils # 7.1 (1.3-7.7) k/uL Lymphocytes # 1.8 (1.0-4.8) k/uL Monocytes # 0.5 (0-1.0) k/uL Eosinophils # 0.1 (0-0.7) k/uL Basophils # 0.0 (0-0.2) k/uL PT (9.0-12.0) sec INR (<1.2) APTT (22.0-30.0) sec Sodium 141 (137-145) mmol/L Potassium 3.5 (3.5-5.1) mmol/L Chloride 105 (98-107) mmol/L Carbon Dioxide 23 (22-30) mmol/L Anion Gap 13 mmol/L BUN 12 (7-17) mg/dL Creatinine 0.85 (0.52-1.04) mg/dL Est GFR (CKD-EPI)AfAm 89 (>60 ml/min/1.73 sqM) Est GFR (CKD-EPI)NonAf 77 (>60 ml/min/1.73 sqM) Glucose 111 H (74-99) mg/dL Plasma Lactic Acid Elio 1.4 (0.7-2.0) mmol/L Calcium 9.4 (8.4-10.2) mg/dL Total Bilirubin 0.3 (0.2-1.3) mg/dL AST 29 (14-36) U/L ALT 20 (9-52) U/L Alkaline Phosphatase 103 (38-126) U/L Total Protein 7.4 (6.3-8.2) g/dL Albumin 4.3 (3.5-5.0) g/dL Urine Color Urine Appearance (Clear) Urine pH (5.0-8.0) Ur Specific Sherwood (1.001-1.035) Urine Protein (Negative) Urine Glucose (UA) (Negative) Urine Ketones (Negative) Urine Blood (Negative) Urine Nitrite (Negative) Urine Bilirubin (Negative) Urine Urobilinogen (<2.0) mg/dL Ur Leukocyte Esterase (Negative) 04/07/19 04/07/19 Range/Units 21:46 23:36 WBC (3.8-10.6) k/uL RBC (3.80-5.40) m/uL Hgb (11.4-16.0) gm/dL Hct (34.0-46.0) % MCV (80.0-100.0) fL MCH (25.0-35.0) pg MCHC (31.0-37.0) g/dL RDW (11.5-15.5) % Plt Count (150-450) k/uL Neutrophils % % Lymphocytes % % Monocytes % % Eosinophils % % Basophils % % Neutrophils # (1.3-7.7) k/uL Lymphocytes # (1.0-4.8) k/uL Monocytes # (0-1.0) k/uL Eosinophils # (0-0.7) k/uL Basophils # (0-0.2) k/uL PT 9.8 (9.0-12.0) sec INR 0.9 (<1.2) APTT 25.0 (22.0-30.0) sec Sodium (137-145) mmol/L Potassium (3.5-5.1) mmol/L Chloride (98-107) mmol/L Carbon Dioxide (22-30) mmol/L Anion Gap mmol/L BUN (7-17) mg/dL Creatinine (0.52-1.04) mg/dL Est GFR (CKD-EPI)AfAm (>60 ml/min/1.73 sqM) Est GFR (CKD-EPI)NonAf (>60 ml/min/1.73 sqM) Glucose (74-99) mg/dL Plasma Lactic Acid Elio (0.7-2.0) mmol/L Calcium (8.4-10.2) mg/dL Total Bilirubin (0.2-1.3) mg/dL AST (14-36) U/L ALT (9-52) U/L Alkaline Phosphatase (38-126) U/L Total Protein (6.3-8.2) g/dL Albumin (3.5-5.0) g/dL Urine Color Yellow Urine Appearance Clear (Clear) Urine pH 5.5 (5.0-8.0) Ur Specific Sherwood 1.013 (1.001-1.035) Urine Protein Negative (Negative) Urine Glucose (UA) Negative (Negative) Urine Ketones Negative (Negative) Urine Blood Negative (Negative) Urine Nitrite Negative (Negative) Urine Bilirubin Negative (Negative) Urine Urobilinogen <2.0 (<2.0) mg/dL Ur Leukocyte Esterase Negative (Negative) - EKG Data -: EKG Interpreted by Me EKG shows normal: sinus rhythm EKG Comments: EKG was obtained due to complaint of shortness breath and back pain. EKG obtained at 2129, rate is 75 rhythm is sinus normal intervals, WA 150, QRS 102, QTc is 422. No acute ST elevations or depressions no evidence of acute ischemia or infarction. There is evidence of right ventricular conduction delay. This likely related to chronic lung disease. Disposition Clinical Impression: Atypical chest pain Disposition: HOME SELF-CARE Condition: Stable Instructions (If sedation given, give patient instructions): Chronic Cough (ED) Is patient prescribed a controlled substance at d/c from ED?: No Referrals: Alonso Robertson DO [Primary Care Provider] - 1-2 days
[2019-04-07 22:17] LABS: Basophils % (A) 0 %; Eosinophils # (A) 0.1 k/uL (0-0.7); Eosinophils % (A) 1 %; HCT 41.2 % (34.0-46.0); HGB 13.2 gm/dL (11.4-16.0); Lymphocytes # (A) 1.8 k/uL (1.0-4.8); Lymphocytes % (A) 18 %; MCH 29.1 pg (25.0-35.0); MCHC 32.1 g/dL (31.0-37.0); MCV 90.8 fL (80.0-100.0); Mean Platelet Volume 8.1; Monocytes # (A) 0.5 k/uL (0-1.0); Monocytes % (A) 6 %; Neutrophils # (A) 7.1 k/uL (1.3-7.7); Neutrophils % (A) 74 %; Platelet Count 166 k/uL (150-450); RBC 4.54 m/uL (3.80-5.40); RDW 13.3 % (11.5-15.5); WBC 9.6 k/uL (3.8-10.6)
--- NOTE | 2019-04-07 22:19 | XR ---
EXAMINATION TYPE: XR chest 2V DATE OF EXAM: 04/07/2019 COMPARISON: 09/12/2018 HISTORY: Short of breath TECHNIQUE: Frontal and lateral views of the chest are obtained. FINDINGS: There is some pleural and pulmonary scarring at the lung apices. There is coarse density i n both upper lobes. Heart is normal. There is mild coarsening of interstitial markings. There are no hilar masses. There is no heart failure. There are chest leads. Heart size is normal. IMPRESSION: Pulmonary fibrotic changes. There is probably some COPD. There are new bilateral upper l obe mild pulmonary infiltrates near the lung apices compared to old exam.
[2019-04-07 22:27] LABS: INR 0.9 (<1.2); Prothrombin Time 9.8 sec (9.0-12.0)
[2019-04-07 22:28] LABS: Albumin 4.3 g/dL (3.5-5.0); Calcium 9.4 mg/dL (8.4-10.2); Potassium 3.5 mmol/L (3.5-5.1); Total Bilirubin 0.3 mg/dL (0.2-1.3); Total Protein 7.4 g/dL (6.3-8.2)
[2019-04-07 23:45] LABS: Appearance,Urine Clear (Clear); Bilirubin,Urine Negative (Negative); Blood,Urine Negative (Negative); Color,Urine Yellow; Glucose,Urine (UA) Negative (Negative); Ketones,Urine Negative (Negative); Leukocyte Esterase,Urine Negative (Negative); Nitrite,Urine Negative (Negative); PH, Urine 5.5 (5.0-8.0); Protein,Urine Negative (Negative); Specific Gravity,Urine 1.013 (1.001-1.035); Urobilinogen,Urine <2.0 mg/dL (<2.0)
[2019-04-08] MEDS ORDERED: KETOROLAC 30 MG/ML 1 ML VIAL IVP STA (01:58)
[2019-04-08 02:26] VITALS: BP 121/66; PULSE 70; RESP 20
== END 2019-04-08 02:26 | disposition home or self-care (01) ==
LOC: EC 20:08
DX: R07.89 Other chest pain (principal); R06.02 Shortness of breath; J16.8 Pneumonia due to other specified infectious organisms; J43.9 Emphysema, unspecified; K21.9 Gastro-esophageal reflux disease without esophagitis; Z88.5 Allergy status to narcotic agent; Z88.7 Allergy status to serum and vaccine; Z91.048 Other nonmedicinal substance allergy status; Z79.51 Long term (current) use of inhaled steroids; Z79.52 Long term (current) use of systemic steroids; Z79.899 Other long term (current) drug therapy; Z87.09 Personal history of other diseases of the respiratory system
CPT/HCPCS: 36415; 93005; 80053; 83605; 85025; 85610; 85730; 81003; 87040; 71046; 99285; 96374; 96361 ×2; J1885

== ENCOUNTER → 2019-04-14 | Outpatient (CLI) | payer BC ==
--- NOTE | 2019-04-14 12:39 | CT ---
EXAMINATION TYPE: CT angio chest DATE OF EXAM: 04/14/2019 COMPARISON: 05/15/2018 HISTORY: 58 year-old female shortness of breath TECHNIQUE: Contiguous axial scanning of the chest performed with IV Contrast, patient injected with 1 00 mL of Isovue 370. Coronal/sagittal MIP reconstructions performed. CT DLP: 245.0 mGycm Automated exposure control for dose reduction was used. FINDINGS: Heart normal size without pericardial effusion. Aorta normal caliber with conventional vessel branching anatomy. Satisfactory opacification of the pulmonary arterial system. No pulmonary embolus is seen. No finding of interventricular septum or reflux of contrast into the hepatic veins. A mildly enlarged right hilar lymph node measures 1.4 cm, increased from prior. Left vertebral fillin g the lymph node measures 1.2 cm versus 1.0 cm, previously. Normal variant azygos fissure. Patchy reticular changes and nodularity redemonstrated within the right greater than left upper lobes and also within the superior segment right lower lobe. Subtle underlying cavitary changes may be pre sent and some nodules, for example, axial image 47, 65, and 37. Biapical pleural parenchymal scarring . The previous irregular opacities show improvement wall other nodules seen to be new. Mild bronchiec tasis in the right upper lobe. 7 mm nodule posterior right midlung. Volume loss and consolidation in a subsegmental portion of the i nferior lingula. No pleural effusion. Visualized upper abdomen shows no gross abnormality. Bones: No osseous destructive process. IMPRESSION: 1. NO EVIDENCE FOR PULMONARY EMBOLUS. 2. PATCHY RETICULAR CHANGES AND NODULARITY WITHIN THE RIGHT GREATER THAN LEFT UPPER LOBES AND ALSO WI THIN THE SUPERIOR SEGMENT RIGHT LOWER LOBE. FEW OF THESE NODULES SHOW SUBTLE UNDERLYING CAVITARY PINO GE. MUSCLE AND THE IRREGULAR DENSITIES ARE IMPROVED FROM 05/15/2018, OTHER AREAS NODULARITY ARE NEW FR OM THEN. CORRELATE TO EXCLUDE ATYPICAL FUNGAL OR MYCOBACTERIAL INFECTIONS. 3. NEWLY ENLARGED 1.4 CM RIGHT HILAR LYMPH NODE LIKELY REACTIVE. REASSESS AT FOLLOW-UP. 4. A 7 MM POSTERIOR RIGHT MIDLUNG PULMONARY NODULE MAY BE INFECTIOUS/INFLAMMATORY WELL. REASSESS A T A 3 MONTH FOLLOW-UP.
== END | disposition home or self-care (01) ==
LOC: RADCTMAIN 11:43
PROVIDERS: ATTEND Internal Medicine
DX: R91.1 Solitary pulmonary nodule (principal)
CPT/HCPCS: 71275; Q9967

== ENCOUNTER → 2019-05-07 | Day surgery (SDC) | payer BC ==
[2019-05-05 16:35] VITALS: BMI 30.7
[~2019-05-07] MED LIST changes: +ALBUTEROL NEBULIZED 2.5 MG/3 ML INHALATION ONE; +DEXAMETHASONE SOD PHOSPHATE 10 MG/ML 1 ML VIAL IV ONE; +GLYCOPYRROLATE 0.2 MG/ML 2 ML VIAL ONE; +LIDOCAINE 1% 20 ML VIAL (10MG/ML) FOR IV START INTRADERMA ONE; -LIDOCAINE 1% 20 ML VIAL (10MG/ML) FOR IV START INTRADERMA PRN; +MIDAZOLAM 2 MG/2 ML VIAL ONE; +NEOSTIGMINE 1 MG/ML 10 ML VIAL ONE; +ONDANSETRON 4 MG/2 ML VIAL IVP STA; +PROPOFOL 10 MG/ML 20 ML VIAL IV ONE; +ROCURONIUM BROMIDE 10 MG/ML 10 ML VIAL IV ONE; +SCOPOLAMINE 1.5MG/72HR PATCH TRANSDERM STA; +SUCCINYLCHOLINE CHLORIDE 100 MG/5 ML SYR IV ONE
[2019-05-07 10:24] VITALS: TEMP 97.9
[2019-05-07 10:41] LABS: Glucose,Whole Blood 95 mg/dL (75-99)
--- NOTE | 2019-05-07 12:37 | FL ---
EXAMINATION TYPE: FL bronchoscopy DATE OF EXAM: 05/07/2019 CLINICAL HISTORY: Fluoroscopy time TECHNIQUE: Fluoroscopy. COMPARISON: None. FINDINGS: Fluoroscopic guidance was provided of 25 seconds. IMPRESSION: As Above.
--- NOTE | 2019-05-07 13:06 | XR ---
EXAMINATION TYPE: XR chest 1V portable DATE OF EXAM: 05/07/2019 COMPARISON: 05/01/2019 HISTORY: Post right lower lobe lung biopsy TECHNIQUE: Single frontal view of the chest is obtained. FINDINGS: Scattered patchy infiltrate and interstitial prominence is stable. No sizable pneumothorax . Asymmetric right apical pleural thickening stable. Heart size normal. Arthropathy of the shoulders. IMPRESSION: 1. No diagnostic evidence of pneumothorax 2. Patchy bilateral areas of infiltrate are stable.
[2019-05-07 13:44] VITALS: BP 142/76; RESP 20
[2019-05-07 14:11] VITALS: PULSE 64
[2019-05-07 16:14] LABS: Appearance,BF Hazy; Nucleated Cells, Body Fluid 600 /uL; RBC, Body Fluid 13700 /uL
[2019-05-07 16:17] LABS: Mononuclear WBC,Body Fluid 36 %; Polynuclear WBC,Body Fluid 64 %; Total Cells Counted,Body Fluid 100
--- NOTE | 2019-05-07 22:45 | PCN ---
PROCEDURE NOTE PROCEDURE PERFORMED: Bronchoscopy, airway examination, therapeutic lavage, BAL and brushes in the right upper lobe, left lower lobe, BAL right middle lobe and multiple transbronchial biopsies right lower lobe. PREOP DIAGNOSIS: Atypical mycobacterial infection and fungal infection. POSTOP DIAGNOSIS: Atypical mycobacterial infection and fungal infection. PRODUCT ASSURANCE ENGINEER: Dr. Robertson and Dr. Sheikh ANESTHESIA: The patient was done in the operating room #[address] Rodriguez provided general anesthesia for the patient. There was informed consent and universal timeout. The patient had the procedure explained to her and to her . DESCRIPTION OF PROCEDURE: After the patient was sedated and under the effects of general anesthesia, and endotracheally intubated, the bronchoscope was inserted through the bronchoscope adapter, connected to the endotracheal tube. Under fluoroscopic guidance, we did brushes in the right upper lobe and left lower lobe. In addition, we did a BAL in the right middle lobe. Finally, we did multiple transbronchial biopsies in the right lower lobe under fluoroscopic guidance. The airways were inflamed and erythematous. They were hyperemic. That was noted throughout in the right upper lobe, right middle lobe, right lower lobe, left upper lobe proper, lingula and left lower lobe. There were thick purulent secretions noted throughout the airways. They were suctioned without difficulty. There was no dominant mass or tumor. The patient tolerated the procedures well. There was minimal bleeding from the right lower lobe after the transbronchial biopsies were done. The patient tolerated the procedure well. She was stable throughout the procedure. Her oxygenation and electrocardiogram were stable as were her airway pressures. Before the bronchoscope withdrawn, we made sure there was adequate hemostasis and there was. We checked for a pneumothorax on the floor prior to the patient being woken up for general anesthesia. There was nothing. Chest x-ray was ordered. The patient will be recovered. I did speak to the patient's , Lemuel. He understood what went on. I told him it would be at least a week to 10 days before we had results of samples. Additional recommendations and suggestions are forthcoming. Everything again went very well and the patient will be recovered. MMODL / IJN: [id number] /
== END | disposition home or self-care (01) ==
LOC: ORWHC2ENDO 09:51
PROVIDERS: ATTEND Internal Medicine Critical Care Medicine
DX: J44.9 Chronic obstructive pulmonary disease, unspecified (principal); A31.0 Pulmonary mycobacterial infection; B48.8 Other specified mycoses; J18.9 Pneumonia, unspecified organism; I49.8 Other specified cardiac arrhythmias; R94.31 Abnormal electrocardiogram [ECG] [EKG]; E55.9 Vitamin D deficiency, unspecified; K21.9 Gastro-esophageal reflux disease without esophagitis; G43.909 Migraine, unspecified, not intractable, without status migrainosus; K58.9 Irritable bowel syndrome, unspecified; Z79.899 Other long term (current) drug therapy; Z79.52 Long term (current) use of systemic steroids; Z79.890 Hormone replacement therapy; Z79.51 Long term (current) use of inhaled steroids; Z90.710 Acquired absence of both cervix and uterus; Z98.890 Other specified postprocedural states; Z88.5 Allergy status to narcotic agent; Z91.048 Other nonmedicinal substance allergy status; Z88.7 Allergy status to serum and vaccine; Z82.49 Family history of ischemic heart disease and other diseases of the circulatory system; Z83.3 Family history of diabetes mellitus
CPT/HCPCS: 87798 ×3; 87496; 87498; 87529; 88104; 88108; 88305; 89050; 87252; 87502; 87634; 87070; 87205; 87116; 87102; 87206; 71045; 31628; 31623; 31624; J2250; J1100; J2710; J2405; J0330; J2704

== ENCOUNTER → 2019-06-05 | Outpatient (CLI) | payer BC | END | disposition home or self-care (01) | LOC: LABWHC1 09:34 | PROVIDERS: ATTEND Internal Medicine Infectious Disease | DX: B48.8 Other specified mycoses (principal) | CPT/HCPCS: 36415 ==

== ENCOUNTER 2019-06-25 17:37 | Inpatient (IN) | payer BC, MEDICARE ==
[2019-06-25] MEDS ORDERED: ONDANSETRON 4 MG/2 ML VIAL IVP STA (17:50)
[2019-06-25] MEDS ORDERED: MORPHINE SULFATE 4 MG/ML SYRINGE IV STA ×2 (17:50→19:57)
[2019-06-25] MEDS ORDERED: SODIUM CHLORIDE 0.9% 1,000 ML IV STA (17:51)
[2019-06-25] MEDS ORDERED: ACETAMINOPHEN TAB 500 MG TAB PO STA (17:51)
--- NOTE | 2019-06-25 18:01 | ED ---
General Adult HPI - General Chief complaint: Abdominal Pain Stated complaint: Lung pain, abd pain, vomiting Time Seen by Provider: 06/25/19 17:42 Source: patient Mode of arrival: ambulatory Limitations: no limitations - History of Present Illness Initial comments: Dictation was produced using [employer] dictation software. please excuse any grammatical, word or spelling errors. Chief Complaint: 58-year-old female with a story of fungal pneumonias presents with chief complaint of right upper quadrant abdominal pain and vomiting since last night. History of Present Illness: Patient's a 58-year-old female she states since yesterday. Been having worsening right upper quadrant abdominal pain, nausea or vomiting. Patient denies any diarrhea. Denies any sore throat. She also feels as though she has some lung pain. She states that the pain originates in the right upper quadrant and try was a pressure right anterior and posterior chest. Patient states pain is slightly worse with deep inspiration. Patient has history of fungal and opportunistic lung infections that have been diagnosed by motorcycle mechanic the past. She states the pain is severe and sharp. She does feel chills however denies any fevers. The ROS documented in this emergency department record has been reviewed and confirmed by me. Those systems with pertinent positive or negative responses have been documented in the HPI. All other systems are other negative and/or noncontributory. PHYSICAL EXAM: General Impression: Alert and oriented x3, acute distress secondary to pain HEENT: Normocephalic atraumatic, extra-ocular movements intact, pupils equal and reactive to light bilaterally, mucous membranes moist. Cardiovascular: Heart regular rate and rhythm, S1&S2 audible, no murmurs, rubs or gallops Chest: Lungs clear to auscultation bilaterally, no rhonchi, no wheeze, no rales Abdomen: Bowel sounds present, soft abdomen, significant tenderness to the right upper quadrant compared to the rest of the abdomen. Positive Lane sign Musculoskeletal: Pulses present and equal in all extremities, no peripheral edema Motor: no focal deficits noted Neurological: CN II-XII grossly intact, no focal motor or sensory deficits noted Skin: Intact with no visualized rashes Psych: Normal affect and mood ED course: 58-year-old female with chief complaint of acute abdominal pain since yesterday. Vital signs upon arrival shows temperature 102.9. Rest of vital signs within acceptable limits. Patient given Tylenol. Laboratory evaluation obtained. Leukocytosis 6.4. Rest of CBC unremarkable. Coag panel unremarkable. Metabolic panel shows lactic acidosis of 2.4. AST of 44, rest of labs unremarkable. Influenza and rapid a strep test negative. Chest x-ray is nonacute. Computed tomography scan of the abdomen and pelvis shows findings consistent with acute cholecystitis. Pending ultrasound read. Ultrasound was reviewed by myself did show findings to suggest acute cholecystitis. Patient started on Zosyn. Discussed patient case with Dr. Glaser who is willing to accept patients care. Patient to be admitted. EKG interpretation: Ventricular rate 90, normal sinus rhythm, SD interval 118, care is 90, QTc 439. No SD prolongation, no QTC prolongation, no ST or T-wave changes noted. EKG compared to 04/07/2019 showing no changes. Overall, this EKG is unremarkable - Related Data Home Medications Medication Instructions Recorded Confirmed Montelukast [Singulair] 10 mg PO DAILY 01/05/14 05/07/19 Omeprazole [PriLOSEC] 40 mg PO DAILY 01/05/14 05/07/19 Albuterol Inhaler [Ventolin Hfa 2 puff INHALATION DIRECTED PRN 04/25/16 05/07/19 Inhaler] Ergocalciferol [Vitamin D2] 50,000 unit PO WE 04/25/16 05/07/19 Fludrocortisone [Florinef] 0.1 mg PO DAILY 04/25/16 05/07/19 Albuterol Nebulized [Ventolin 2.5 mg INHALATION DAILY PRN 11/04/17 05/07/19 Nebulized] Sucralfate [Carafate] 1 gm PO QID PRN 11/04/17 05/07/19 Amikacin Liposomal/Neb.accessr 1 dose INHALATION DAILY 08/05/18 05/07/19 [Arikayce 590 mg/8.4 ml Vial] Azithromycin [Zithromax] 500 mg PO MOWEFR 08/05/18 05/07/19 Ethambutol [Myambutol] 1,200 mg PO MOWEFR 08/05/18 05/07/19 Potassium Gluconate 550 mg PO DAILY 08/05/18 05/07/19 Cetirizine HCl [Zyrtec] 10 mg PO DAILY 04/07/19 05/07/19 Dicyclomine HCl 10 mg PO TID PRN 04/07/19 05/07/19 Posaconazole [Noxafil] 300 mg PO DAILY 04/07/19 05/07/19 Hydrochlorothiazide 25 mg PO DAILY 05/05/19 05/07/19 Ibuprofen [Motrin Ib] 400 mg PO DIRECTED PRN 05/05/19 05/07/19 Vitamin C/Biotin [Hair, Skin and 1 each PO DAILY 05/05/19 05/07/19 Nails] predniSONE 20 mg PO DAILY 05/05/19 05/07/19 Allergies Allergy/AdvReac Type Severity Reaction Status Date / Time voriconazole Allergy Unknown HAIR LOSS, Verified 06/25/19 17:40 BLISTERS, RASHES, NAILS FELL OFF. adhesive Allergy blisters Verified 06/25/19 17:40 from cloth tape pneumococcal 23-valent Allergy chest pain Verified 06/25/19 17:40 polysacchari and dyspnea [From Pneumovax 23] meperidine [From Demerol] AdvReac Dyspnea Verified 06/25/19 17:40 cloth tape Allergy blisters Uncoded 06/25/19 17:40 Review of Systems ROS Statement: Those systems with pertinent positive or pertinent negative responses have been documented in the HPI. ROS Other: All systems not noted in ROS Statement are negative. 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 History of Any Multi-Drug Resistant Organisms: None Reported Past Surgical History: Adenoidectomy, Hysterectomy, Tonsillectomy, Tubal Li gation Additional Past Surgical History / Comment(s): COLONOSCOPY/EGD,several bronchoscopy, lung biopsy,LASIK Past Anesthesia/Blood Transfusion Reactions: Postoperative Nausea & Vomiting (PONV) Past Psychological History: No Psychological Hx Reported Smoking Status: Never smoker Past Alcohol Use History: None Reported Past Drug Use History: None Reported - Past Family History Mother Family Medical History: No Reported History Brother(s) Family Medical History: Cancer General Exam Limitations: no limitations Course Vital Signs 06/25/19 17:38 Temperature 102.9 F H Pulse Rate 79 Respiratory 22 Rate Blood Pressure 128/85 O2 Sat by Pulse 100 Oximetry Medical Decision Making - Lab Data Result diagrams: 06/25/19 18:15 06/25/19 18:15 Lab Results 06/25/19 06/25/19 06/25/19 Range/Units 18:15 18:15 18:15 WBC 16.4 H (3.8-10.6) k/uL RBC 5.61 H (3.80-5.40) m/uL Hgb 15.9 (11.4-16.0) gm/dL Hct 48.6 H (34.0-46.0) % MCV 86.6 (80.0-100.0) fL MCH 28.4 (25.0-35.0) pg MCHC 32.8 (31.0-37.0) g/dL RDW 15.8 H (11.5-15.5) % Plt Count 267 (150-450) k/uL Neutrophils % 85 % Lymphocytes % 9 % Monocytes % 5 % Eosinophils % 1 % Basophils % 0 % Neutrophils # 13.9 H (1.3-7.7) k/uL Lymphocytes # 1.5 (1.0-4.8) k/uL Monocytes # 0.8 (0-1.0) k/uL Eosinophils # 0.1 (0-0.7) k/uL Basophils # 0.1 (0-0.2) k/uL PT (9.0-12.0) sec INR (<1.2) APTT (22.0-30.0) sec Sodium (137-145) mmol/L Potassium (3.5-5.1) mmol/L Chloride (98-107) mmol/L Carbon Dioxide (22-30) mmol/L Anion Gap mmol/L BUN (7-17) mg/dL Creatinine (0.52-1.04) mg/dL Est GFR (CKD-EPI)AfAm (>60 ml/min/1.73 sqM) Est GFR (CKD-EPI)NonAf (>60 ml/min/1.73 sqM) Glucose (74-99) mg/dL Plasma Lactic Acid Elio (0.7-2.0) mmol/L Calcium (8.4-10.2) mg/dL Total Bilirubin (0.2-1.3) mg/dL AST (14-36) U/L ALT (4-34) U/L Alkaline Phosphatase (38-126) U/L Total Protein (6.3-8.2) g/dL Albumin (3.5-5.0) g/dL Lipase (23-300) U/L Influenza Type A RNA Not Detected (Not Detectd) Influenza Type B (PCR) Not Detected (Not Detectd) Group A Strep Rapid Negative (Negative) 06/25/19 06/25/19 06/25/19 Range/Units 18:15 18:15 18:15 WBC (3.8-10.6) k/uL RBC (3.80-5.40) m/uL Hgb (11.4-16.0) gm/dL Hct (34.0-46.0) % MCV (80.0-100.0) fL MCH (25.0-35.0) pg MCHC (31.0-37.0) g/dL RDW (11.5-15.5) % Plt Count (150-450) k/uL Neutrophils % % Lymphocytes % % Monocytes % % Eosinophils % % Basophils % % Neutrophils # (1.3-7.7) k/uL Lymphocytes # (1.0-4.8) k/uL Monocytes # (0-1.0) k/uL Eosinophils # (0-0.7) k/uL Basophils # (0-0.2) k/uL PT 10.1 (9.0-12.0) sec INR 0.9 (<1.2) APTT 22.3 (22.0-30.0) sec Sodium 139 (137-145) mmol/L Potassium 3.6 (3.5-5.1) mmol/L Chloride 100 (98-107) mmol/L Carbon Dioxide 30 (22-30) mmol/L Anion Gap 9 mmol/L BUN 13 (7-17) mg/dL Creatinine 0.82 (0.52-1.04) mg/dL Est GFR (CKD-EPI)AfAm >90 (>60 ml/min/1.73 sqM) Est GFR (CKD-EPI)NonAf 80 (>60 ml/min/1.73 sqM) Glucose 125 H (74-99) mg/dL Plasma Lactic Acid Elio 2.4 H* (0.7-2.0) mmol/L Calcium 9.1 (8.4-10.2) mg/dL Total Bilirubin 1.5 H (0.2-1.3) mg/dL AST 44 H (14-36) U/L ALT 22 (4-34) U/L Alkaline Phosphatase 108 (38-126) U/L Total Protein 7.4 (6.3-8.2) g/dL Albumin 4.2 (3.5-5.0) g/dL Lipase 150 (23-300) U/L Influenza Type A RNA (Not Detectd) Influenza Type B (PCR) (Not Detectd) Group A Strep Rapid (Negative) Disposition Clinical Impression: Acute cholecystitis Disposition: ADMITTED IP TO THIS HOSP Condition: Fair Referrals: Alonso Robertson DO [Primary Care Provider] - 1-2 days Decision Time: 20:03
[2019-06-25 18:51] LABS: ALT 22 U/L (4-34); AST 44 U/L (14-36); African American GFR (CKD) >90 (>60 ml/min/1.73 sqM); Albumin 4.2 g/dL (3.5-5.0); Alkaline Phosphatase 108 U/L (38-126); Anion Gap 9 mmol/L; Blood Urea Nitrogen 13 mg/dL (7-17); Calcium 9.1 mg/dL (8.4-10.2); Carbon Dioxide 30 mmol/L (22-30); Chloride 100 mmol/L (98-107); Glucose 125 mg/dL (74-99); Non-African American GFR(CKD) 80 (>60 ml/min/1.73 sqM); Potassium 3.6 mmol/L (3.5-5.1); Sodium 139 mmol/L (137-145); Total Bilirubin 1.5 mg/dL (0.2-1.3); Total Protein 7.4 g/dL (6.3-8.2)
[2019-06-25 18:53] LABS: Basophils # (A) 0.1 k/uL (0-0.2); Basophils % (A) 0 %; Eosinophils # (A) 0.1 k/uL (0-0.7); Eosinophils % (A) 1 %; HCT 48.6 % (34.0-46.0); HGB 15.9 gm/dL (11.4-16.0); Lymphocytes # (A) 1.5 k/uL (1.0-4.8); Lymphocytes % (A) 9 %; MCH 28.4 pg (25.0-35.0); MCHC 32.8 g/dL (31.0-37.0); MCV 86.6 fL (80.0-100.0); Mean Platelet Volume 8.2; Monocytes # (A) 0.8 k/uL (0-1.0); Monocytes % (A) 5 %; Neutrophils # (A) 13.9 k/uL (1.3-7.7); Neutrophils % (A) 85 %; Platelet Count 267 k/uL (150-450); RBC 5.61 m/uL (3.80-5.40); RDW 15.8 % (11.5-15.5); WBC 16.4 k/uL (3.8-10.6)
[2019-06-25 18:57] LABS: INR 0.9 (<1.2); Partial Thromboplastin Time 22.3 sec (22.0-30.0); Prothrombin Time 10.1 sec (9.0-12.0)
[2019-06-25] MEDS ORDERED: PIPERACILLIN-TAZOBACTAM 3.375 GM in SODIUM CHLORIDE 0.9% 100 ML IVPB STA (18:57)
--- NOTE | 2019-06-25 19:14 | XR ---
EXAMINATION TYPE: XR chest 2V DATE OF EXAM: 06/25/2019 COMPARISON: 05/07/2019 HISTORY: Lung biopsy TECHNIQUE: 2 views FINDINGS: There is coarse interstitial density in the lungs. I see no pneumothorax. There is no heart failure. Heart size is normal. There are chest leads. Costophrenic angles are clear. IMPRESSION: Pulmonary interstitial fibrosis. No pneumothorax. No change.
--- NOTE | 2019-06-25 19:40 | CT ---
EXAM: CT Abdomen and Pelvis With Intravenous Contrast CLINICAL HISTORY: Reason: abdominal pain TECHNIQUE: Axial computed tomography images of the abdomen and pelvis with intravenous contrast. CTDI is 27 mGy and DLP is 1202 mGy-cm. This CT exam was performed using one or more of the following dose reduction techniques: automated exposure control, adjustment of the mA and/or kV according to patient size, and/or use of iterative reconstruction technique. Delayed imaging was performed. Coronal and sagittal reformatted images were created and reviewed. COMPARISON: No relevant prior studies available. FINDINGS: Lung bases: Unremarkable. No consolidation. No effusions. ABDOMEN: Liver: Diffusely hypodense liver, suggesting fatty infiltration. Gallbladder and bile ducts: Findings concerning for acute cholecystitis. Noncalcified cholelithiasis in the gallbladder neck with diffuse gallbladder distention, wall thickening, and pericholecystic fluid. Pancreas: Unremarkable. No mass. No ductal dilation. Spleen: Unremarkable. No splenomegaly. Adrenals: Unremarkable. No mass. Kidneys and ureters: 2.1 cm simple-appearing cortical cyst in the left upper renal pole. The kidneys otherwise appear unremarkable. No hydronephrosis or hydroureter. Stomach and bowel: Colonic diverticulosis most prominent at the hepatic flexure. Wall thickening throughout the hepatic flexure is likely reactive inflammation from the adjacent cholecystitis although cannot exclude a mild diverticulitis. Remainder of the colon appears unremarkable. No obstruction. PELVIS: Appendix: No findings to suggest acute appendicitis. Bladder: Unremarkable. No visible stones. Reproductive: The uterus is not visualized, likely surgically absent. ABDOMEN and PELVIS: Intraperitoneal space: Small volume of free fluid in the pelvis. No free air. Bones/joints: No acute fracture. No dislocation. Soft tissues: Unremarkable. Vasculature: Unremarkable. No abdominal aortic aneurysm. Lymph nodes: Unremarkable. No enlarged lymph nodes. IMPRESSION: 1. Findings concerning for acute cholecystitis. Noncalcified cholelithiasis in the gallbladder neck with diffuse gallbladder distention, wall thickening, and pericholecystic fluid. 2. Colonic diverticulosis most prominent at the hepatic flexure. Wall thickening throughout the hepatic flexure is likely reactive inflammation from the adjacent cholecystitis although cannot exclude a mild diverticulitis. 3. Small volume of free fluid in the pelvis. 4. Diffusely hypodense liver, suggesting fatty infiltration. <MYCVCSECTION> Communications: 06/25/19 19:43 Call Doctor Regarding Other, called Dr. Julian on 06/25 19:43 (-05:00)
[2019-06-25] MEDS ORDERED: ONDANSETRON 4 MG/2 ML VIAL IVP PRN (19:59)
[2019-06-25] MEDS ORDERED: HYDROmorphone 0.5 MG/0.5 ML SYRINGE IVP PRN (19:59)
[2019-06-25] MEDS ORDERED: MORPHINE SULFATE 4 MG/ML SYRINGE IV PRN (19:59)
[2019-06-25] MEDS ORDERED: NALOXONE 0.4 MG/ML 1 ML VIAL IV PRN (19:59)
--- NOTE | 2019-06-25 20:22 | US ---
EXAMINATION TYPE: US gallbladder DATE OF EXAM: 06/25/2019 COMPARISON: CT 2009 CLINICAL HISTORY: ruq pain. RUQ pain x 2 days. Vomiting. EXAM MEASUREMENTS: Liver Length: 19.9 cm Gallbladder Wall: 0.37 cm CBD: 0.66 cm Right Kidney: 11.5 x 5.1 x 4.7 cm Patient gassy. Pancreas: Limited by overlying bowel gas. Liver: Appears to be enlarged. Gallbladder: Appears distended measuring 14.2 cm in length and 3.8 cm in width. Echogenic material w ithin gallbladder seen measurin.9 x 1.4 x 0.6 cm. Wall measures 0.37 cm[address] Evidence for sonographic Lane's sign: Yes CBD: Appears to measure upper limits of normal Right Kidney: No hydronephrosis or masses seen Impression There is some echogenic bile. No gallstones seen. Gallbladder is distended and could relate to gallbl adder dysfunction. Mild gallbladder wall thickening up to 4 mm. Cholecystitis is possible. No dilatio n of the intrahepatic bile ducts.
[2019-06-25] MEDS: SODIUM CHLORIDE 0.9% 1,000 ML IV SCH (22:28)
[2019-06-26] MEDS: PIPERACILLIN-TAZOBACTAM 3.375 GM in SODIUM CHLORIDE 0.9% 100 ML IVPB SCH ×4 (00:30→23:50)
[2019-06-26] MEDS: SODIUM CHLORIDE 0.9% 1,000 ML IV SCH ×3 (04:41→22:30)
[2019-06-26] MEDS: ACETAMINOPHEN TAB 325 MG TAB PO PRN (05:28)
[2019-06-26] MEDS: PANTOPRAZOLE 40 MG/10 ML VIAL IV SCH (08:37)
[2019-06-26 09:14] LABS: Anisocytosis Slight; Basophils # (A) 0.1 k/uL (0-0.2); Basophils % (A) 0 %; Eosinophils # (A) 0.1 k/uL (0-0.7); Eosinophils % (A) 0 %; HCT 42.4 % (34.0-46.0); Lymphocytes # (A) 1.4 k/uL (1.0-4.8); Lymphocytes % (A) 8 %; MCV 87.9 fL (80.0-100.0); Monocytes # (A) 1.1 k/uL (0-1.0); Monocytes % (A) 6 %; Neutrophils # (A) 15.4 k/uL (1.3-7.7); Neutrophils % (A) 85 %; Platelet Count 254 k/uL (150-450); RBC 4.82 m/uL (3.80-5.40); WBC 18.2 k/uL (3.8-10.6)
[2019-06-26 09:41] LABS: Albumin 3.2 g/dL (3.5-5.0); Potassium 3.2 mmol/L (3.5-5.1); Total Bilirubin 1.4 mg/dL (0.2-1.3); Total Protein 5.7 g/dL (6.3-8.2)
[2019-06-26 09:43] LABS: Appearance,Urine Clear (Clear); Bacteria,Urine Rare /hpf; Bilirubin,Urine Negative (Negative); Blood,Urine Negative (Negative); Color,Urine Yellow; Glucose,Urine (UA) Negative (Negative); Ketones,Urine Negative (Negative); Leukocyte Esterase,Urine Negative (Negative); Mucus,Urine Rare /hpf; Nitrite,Urine Negative (Negative); Protein,Urine 1+ (Negative); RBC,Urine 1 /hpf (0-5); Specific Gravity,Urine 1.029 (1.001-1.035); Squamous Epithelial Cell,Urine 1 /hpf (0-4); Urobilinogen,Urine <2.0 mg/dL (<2.0); WBC,Urine 3 /hpf (0-5)
[2019-06-26] MEDS ORDERED: IV FLUID CONTINUATION 1,000 ML IV ONE (13:12)
[2019-06-26 13:23] LABS: Glucose,Whole Blood 96 mg/dL (75-99)
--- NOTE | 2019-06-26 14:02 | P.GSHP ---
History of Present Illness H&P Date: 06/26/19 Chief Complaint: acute cholecystitis 58-year-old female presents to the hospital with worsening right upper quadrant pain for the last 2 days. Patient admits to having intermittent discomfort right upper quadrant over the past few years. She has a history of recurrent lung infection. She follows with pulmonary for this. Patient underwent CAT scan abdomen and pelvis which revealed impressive inflammatory changes around the gallbladder with significant thickening, pericholecystic fluid, and stones. Ultrasound was less impressive. Liver enzymes fairly benign. She did have a high fever of 102. She was admitted to the hospital. She was started on broad- spectrum antibiotics. 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 History of Any Multi-Drug Resistant Organisms: None Reported Past Surgical History: Adenoidectomy, Hysterectomy, Tonsillectomy, Tubal Ligation Additional Past Surgical History / Comment(s): COLONOSCOPY/EGD,several bronchoscopy, lung biopsy,LASIK Past Anesthesia/Blood Transfusion Reactions: Postoperative Nausea & Vomiting (PONV) Past Psychological History: No Psychological Hx Reported Smoking Status: Never smoker Past Alcohol Use History: None Reported Past Drug Use History: None Reported - Past Family History Mother Family Medical History: No Reported History Brother(s) Family Medical History: Cancer Medications and Allergies Home Medications Medication Instructions Recorded Confirmed Type Montelukast [Singulair] 10 mg PO DAILY 01/05/14 06/25/19 History Omeprazole [PriLOSEC] 20 mg PO DAILY 01/05/14 06/25/19 History Albuterol Inhaler [Ventolin Hfa 2 puff INHALATION DIRECTED PRN 04/25/16 06/25/19 History Inhaler] Ergocalciferol [Vitamin D2] 50,000 unit PO WE 04/25/16 06/25/19 History Fludrocortisone [Florinef] 0.1 mg PO DAILY 04/25/16 06/25/19 History Albuterol Nebulized [Ventolin 2.5 mg INHALATION DAILY PRN 11/04/17 06/25/19 History Nebulized] Sucralfate [Carafate] 1 gm PO QID PRN 11/04/17 06/25/19 History Amikacin Liposomal/Neb.accessr 1 dose INHALATION DAILY 08/05/18 06/25/19 History [Arikayce 590 mg/8.4 ml Vial] Azithromycin [Zithromax] 500 mg PO MOWEFR 08/05/18 06/25/19 History Ethambutol [Myambutol] 1,200 mg PO MOWEFR 08/05/18 06/25/19 History Potassium Gluconate 550 mg PO DAILY 08/05/18 06/25/19 History Cetirizine HCl [Zyrtec] 10 mg PO DAILY 04/07/19 06/25/19 History Dicyclomine HCl 10 mg PO TID PRN 04/07/19 06/25/19 History Hydrochlorothiazide 25 mg PO DAILY 05/05/19 06/25/19 History Ibuprofen [Motrin Ib] 400 mg PO Q6H PRN 05/05/19 06/25/19 History Vitamin C/Biotin [Hair, Skin and 1 each PO DAILY 05/05/19 06/25/19 History Nails] predniSONE 15 mg PO DAILY 05/05/19 06/25/19 History Alendronate Sodium [Fosamax] 70 mg PO Q7D 06/25/19 06/25/19 History Posaconazole 300 mg PO DAILY 06/25/19 06/25/19 History Allergies Allergy/AdvReac Type Severity Reaction Status Date / Time voriconazole Allergy Unknown HAIR LOSS, Verified 06/26/19 13:28 BLISTERS, RASHES, NAILS FELL OFF. adhesive Allergy blisters Verified 06/26/19 13:28 from cloth tape pneumococcal 23-valent Allergy chest pain Verified 06/26/19 13:28 polysacchari and dyspnea [From Pneumovax 23] meperidine [From Demerol] AdvReac Dyspnea Verified 06/26/19 13:28 cloth tape Allergy blisters Uncoded 06/26/19 13:28 Surgical - Exam Vital Signs Temp Pulse Resp BP Pulse Ox 102.9 F H 79 22 128/85 100 06/25/19 17:38 06/25/19 17:38 06/25/19 17:38 06/25/19 17:38 06/25/19 17:38 Physical exam: General: Well-developed, well-nourished HEENT: Normocephalic, sclerae nonicteric Abdomen: right upper quadrant tenderness with Lane sign present, nondistended Extremities: No edema Neuro: Alert and oriented Results - Labs 06/26/19 08:41 06/26/19 08:41 Abnormal Lab Results - Last 24 Hours (Table) 06/25/19 06/25/19 06/25/19 Range/Units 18:15 18:15 18:15 WBC 16.4 H (3.8-10.6) k/uL RBC 5.61 H (3.80-5.40) m/uL Hct 48.6 H (34.0-46.0) % RDW 15.8 H (11.5-15.5) % Neutrophils # 13.9 H (1.3-7.7) k/uL Monocytes # (0-1.0) k/uL Potassium (3.5-5.1) mmol/L Carbon Dioxide (22-30) mmol/L Glucose 125 H (74-99) mg/dL Plasma Lactic Acid Elio 2.4 H* (0.7-2.0) mmol/L Calcium (8.4-10.2) mg/dL Total Bilirubin 1.5 H (0.2-1.3) mg/dL AST 44 H (14-36) U/L Total Protein (6.3-8.2) g/dL Albumin (3.5-5.0) g/dL Urine Protein (Negative) Urine Bacteria (None) /hpf Urine Mucus (None) /hpf 06/26/19 06/26/19 06/26/19 Range/Units 08:41 08:41 09:13 WBC 18.2 H (3.8-10.6) k/uL RBC (3.80-5.40) m/uL Hct (34.0-46.0) % RDW 16.0 H (11.5-15.5) % Neutrophils # 15.4 H (1.3-7.7) k/uL Monocytes # 1.1 H (0-1.0) k/uL Potassium 3.2 L (3.5-5.1) mmol/L Carbon Dioxide 31 H (22-30) mmol/L Glucose 103 H (74-99) mg/dL Plasma Lactic Acid Elio (0.7-2.0) mmol/L Calcium 8.0 L (8.4-10.2) mg/dL Total Bilirubin 1.4 H (0.2-1.3) mg/dL AST (14-36) U/L Total Protein 5.7 L (6.3-8.2) g/dL Albumin 3.2 L (3.5-5.0) g/dL Urine Protein 1+ H (Negative) Urine Bacteria Rare H (None) /hpf Urine Mucus Rare H (None) /hpf Microbiology - Last 24 Hours (Table) 06/25/19 18:15 Group A Strep Throat Culture - Preliminary Throat Diabetes panel 06/25/19 06/26/19 Range/Units 18:15 08:41 Sodium 139 142 (137-145) mmol/L Potassium 3.6 3.2 L (3.5-5.1) mmol/L Chloride 100 105 (98-107) mmol/L Carbon Dioxide 30 31 H (22-30) mmol/L BUN 13 13 (7-17) mg/dL Creatinine 0.82 0.91 (0.52-1.04) mg/dL Glucose 125 H 103 H (74-99) mg/dL Calcium 9.1 8.0 L (8.4-10.2) mg/dL AST 44 H 32 (14-36) U/L ALT 22 21 (4-34) U/L Alkaline Phosphatase 108 95 (38-126) U/L Total Protein 7.4 5.7 L (6.3-8.2) g/dL Albumin 4.2 3.2 L (3.5-5.0) g/dL Calcium panel 06/25/19 06/26/19 Range/Units 18:15 08:41 Calcium 9.1 8.0 L (8.4-10.2) mg/dL Albumin 4.2 3.2 L (3.5-5.0) g/dL Pituitary panel 06/25/19 06/26/19 Range/Units 18:15 08:41 Sodium 139 142 (137-145) mmol/L Potassium 3.6 3.2 L (3.5-5.1) mmol/L Chloride 100 105 (98-107) mmol/L Carbon Dioxide 30 31 H (22-30) mmol/L BUN 13 13 (7-17) mg/dL Creatinine 0.82 0.91 (0.52-1.04) mg/dL Glucose 125 H 103 H (74-99) mg/dL Calcium 9.1 8.0 L (8.4-10.2) mg/dL Adrenal panel 06/25/19 06/26/19 Range/Units 18:15 08:41 Sodium 139 142 (137-145) mmol/L Potassium 3.6 3.2 L (3.5-5.1) mmol/L Chloride 100 105 (98-107) mmol/L Carbon Dioxide 30 31 H (22-30) mmol/L BUN 13 13 (7-17) mg/dL Creatinine 0.82 0.91 (0.52-1.04) mg/dL Glucose 125 H 103 H (74-99) mg/dL Calcium 9.1 8.0 L (8.4-10.2) mg/dL Total Bilirubin 1.5 H 1.4 H (0.2-1.3) mg/dL AST 44 H 32 (14-36) U/L ALT 22 21 (4-34) U/L Alkaline Phosphatase 108 95 (38-126) U/L Total Protein 7.4 5.7 L (6.3-8.2) g/dL Albumin 4.2 3.2 L (3.5-5.0) g/dL Assessment and Plan (1) Acute cholecystitis Narrative/Plan: 58-year-old female with acute cholecystitis. Medical scenario discussed with the patient and her . We'll proceed with laparoscopic, possible open cholecystectomy at this time. Risks of bleeding, infection, bile leak, bile duct injury, retained common bile duct stone, trocar injury, conversion to an open procedure, hernia, anesthesia related complications were reviewed. The patient understands and wishes to proceed. Current Visit: Yes Status: Acute Code(s): K81.0 - ACUTE CHOLECYSTITIS SN ED Code(s): 92368725
[2019-06-26] MEDS ORDERED: HEPARIN SODIUM,PORCINE 5,000 UNIT/ML 1 ML VIAL SQ ONE (14:10)
[2019-06-26] MEDS ORDERED: ONDANSETRON 4 MG/2 ML VIAL IVP ONE (14:10)
[2019-06-26] MEDS ORDERED: HYDROCORTISONE SUCCINATE 100 MG/2 ML VIAL IV ONE (14:10)
[2019-06-26] MEDS ORDERED: SCOPOLAMINE 1.5MG/72HR PATCH TRANSDERM ONE (14:10)
[2019-06-26] MEDS ORDERED: LACTATED RINGERS 1,000 ML IV ONE ×2 (14:17→16:06)
[2019-06-26] MEDS ORDERED: SUCCINYLCHOLINE CHLORIDE 100 MG/5 ML SYR IV ONE (14:19)
[2019-06-26] MEDS ORDERED: fentaNYL (PF) 50 MCG/ML 2 ML AMP ONE (14:19)
[2019-06-26] MEDS ORDERED: LIDOCAINE 1% INJ 10MG/ML (20 ML MDV) ONE (14:19)
[2019-06-26] MEDS ORDERED: GLYCOPYRROLATE 0.2 MG/ML 2 ML VIAL ONE (14:19)
[2019-06-26] MEDS ORDERED: ROCURONIUM BROMIDE 10 MG/ML 10 ML VIAL IV ONE (14:19)
[2019-06-26] MEDS ORDERED: PHENYLEPHRINE-0.9% NACL SYG 1 MG/10 ML SYRINGE ONE (14:19)
[2019-06-26] MEDS ORDERED: MIDAZOLAM 2 MG/2 ML VIAL ONE (14:19)
[2019-06-26] MEDS ORDERED: NEOSTIGMINE 1 MG/ML 10 ML VIAL ONE (14:19)
[2019-06-26] MEDS ORDERED: BUPIVACAINE (PF) 0.25% 30 ML VIAL SQ ONE ×2 (15:02)
[2019-06-26] MEDS ORDERED: NALOXONE 0.4 MG/ML 1 ML VIAL IV PRN (16:11)
[2019-06-26] MEDS ORDERED: HYDROmorphone 1 MG/ML 1 ML SYRINGE IVP PRN (16:11)
--- NOTE | 2019-06-26 16:16 | P.OP ---
Date of Procedure: 06/26/19 Procedure(s) Performed: PREOPERATIVE DIAGNOSIS: Acute cholecystitis POSTOPERATIVE DIAGNOSIS: Same with evidence of gangrene PROCEDURE: Laparoscopic cholecystectomy SURGEON: Jailyn EBL: Minimal see anesthesia record ANESTHESIA: Gen. COMPLICATIONS: None OPERATIVE PROCEDURE: The patient was brought and placed on the operating room table in the supine position. The patient was placed under general anesthesia at that time. The abdomen was prepped and draped in the usual sterile fashion. A small vertical infraumbilical incision was made. The fascia was grasped with the Deandra forceps. The fascia was retracted anteriorly. The Veress needle was advanced into the peritoneal cavity. The saline drop test was normal. Insufflation took place up to 15 mmHg. A 5 mm optical trocar was advanced and the peritoneal cavity. 2 additional 5 mm trochars were placed in the right upper quadrant under direct visualization. A 12 mm trocar was advanced into the epigastric incision site. The gallbladder was inspected and noted to be acutely inflamed. This was consistent with the CT findings. The omentum was able to be bluntly dissected away from the gallbladder for its majority. The LigaSure was also used to help with our dissection from the omentum to the gallbladder. Careful blunt dissection revealed the cystic artery entering the medial wall of the gallbladder. This was ligated using the clip television producer. Further blunt dissection revealed the cystic duct which was larger than average given the si gnificant edema of the duct itself. This was able to be encircled with a 2-0 Ethibond stitch was was then tied down using the tie knot device. An additional clip was placed on either side of the tie knot and the cystic duct was divided distal to that. The gallbladder was removed from the liver bed using electrocautery. A small vessel was also then ligated using a television producer. This was later removed from the epigastric trocar site using an Endo Catch bag. A drain was placed in the gallbladder fossa exiting laterally through our 5 mm trocar site. This is sutured to the skin using a 3-0 silk stitch. The gallbladder fossa was irrigated with saline. There was no evidence of any bleeding or biliary drainage seen. The fascia at the 12 millimeter site was closed using a running 0 Vicryl stitch. The trochars were then removed. The skin at all 3 sites was closed using a 4-0 Monocryl stitch. Skin glue was utilized on the incision sites. At the end of this procedure the sponge and needle counts were correct. DISPOSITION: Stable to the recovery room
[2019-06-26] MEDS: HEPARIN SODIUM,PORCINE 5,000 UNIT/ML 1 ML VIAL SQ SCH (23:50)
[2019-06-26] MEDS: HYDROcodone/APAP 5-325MG 1 EACH TAB PO PRN (23:56)
[2019-06-27] MEDS: HYDROcodone/APAP 5-325MG 1 EACH TAB PO PRN (05:13)
[2019-06-27 08:25] LABS: Anisocytosis Slight; Basophils % (A) 0 %; Eosinophils # (A) 0.1 k/uL (0-0.7); Eosinophils % (A) 1 %; HCT 41.2 % (34.0-46.0); Hypochromasia Slight; Lymphocytes # (A) 1.2 k/uL (1.0-4.8); Lymphocytes % (A) 9 %; MCH 28.1 pg (25.0-35.0); MCHC 31.6 g/dL (31.0-37.0); Mean Platelet Volume 8.4; Monocytes # (A) 0.7 k/uL (0-1.0); Monocytes % (A) 5 %; Neutrophils % (A) 85 %; Platelet Count 266 k/uL (150-450); RBC 4.63 m/uL (3.80-5.40); RDW 16.1 % (11.5-15.5); WBC 14.1 k/uL (3.8-10.6)
[2019-06-27 08:33] LABS: ALT 24 U/L (4-34); AST 44 U/L (14-36); African American GFR (CKD) >90 (>60 ml/min/1.73 sqM); Alkaline Phosphatase 93 U/L (38-126); Anion Gap 4 mmol/L; Blood Urea Nitrogen 11 mg/dL (7-17); Calcium 8.3 mg/dL (8.4-10.2); Carbon Dioxide 32 mmol/L (22-30); Chloride 107 mmol/L (98-107); Glucose 105 mg/dL (74-99); Non-African American GFR(CKD) >90 (>60 ml/min/1.73 sqM); Potassium 3.2 mmol/L (3.5-5.1); Sodium 143 mmol/L (137-145); Total Bilirubin 1.2 mg/dL (0.2-1.3); Total Protein 5.6 g/dL (6.3-8.2)
[2019-06-27] MEDS: PIPERACILLIN-TAZOBACTAM 3.375 GM in SODIUM CHLORIDE 0.9% 100 ML IVPB SCH ×3 (08:33→23:59)
[2019-06-27] MEDS: PANTOPRAZOLE 40 MG/10 ML VIAL IV SCH (08:34)
[2019-06-27] MEDS: HEPARIN SODIUM,PORCINE 5,000 UNIT/ML 1 ML VIAL SQ SCH ×2 (08:34→17:19)
[2019-06-27] MEDS ORDERED: Potassium Replacement Protocol 1 EACH MISC MISCELLANE PRN (09:46)
[2019-06-27] MEDS: SODIUM CHLORIDE 0.9% 1,000 ML IV SCH ×3 (09:52→23:59)
[2019-06-27] MEDS: POTASSIUM CHLORIDE ER 20 MEQ TAB.ER PO SCH ×2 (10:08→11:07)
--- NOTE | 2019-06-27 11:50 | P.PN ---
Progress Note - Text Progress Note Date: 06/27/19 the patient has complaints of incisional pain. She does not feel well at home. On exam her vital signs are stable. Her abdomen soft. Incision sites are clean and intact. Status post laparoscopic cholestatic for acute/gangrenous cholecystitis. Patient be hopefully discharge home tomorrow. We'll continue supportive care.
[2019-06-27] MEDS ORDERED: ALBUTEROL NEBULIZED 2.5 MG/3 ML INHALATION PRN (13:05)
[2019-06-27] MEDS ORDERED: SUCRALFATE 1 GM TAB PO PRN (13:05)
[2019-06-27] MEDS ORDERED: DICYCLOMINE 10 MG CAP PO PRN (13:05)
[2019-06-27] MEDS ORDERED: ALBUTEROL INHALER 60 PUFF/8 GM INHALER INHALATION PRN (13:05)
--- NOTE | 2019-06-27 13:13 | P.CONS ---
History of Present Illness - Reason for Consult Consult date: 06/27/19 - Chief Complaint Fevers - History of Present Illness 58-year-old female presents to the hospital with worsening right upper quadrant pain for the last 2 days. This is associated with fevers and feeling of indigestion. No vomiting. Patient admits to having intermittent discomfort right upper quadrant over the past few years. She has a history of recurrent lung infection with MAC as well as 2 fungal infections. This is currently active and she receiving treatment for it. She follows with pulmonary for this. She denied having any chest pain, shortness of breath. No diarrhea. In the emergency department she underwent CAT scan abdomen and pelvis which revealed impressive inflammatory changes around the gallbladder with significant thickening, pericholecystic fluid, and stones. Liver enzymes ok but did have a leukocytosis of around 18,000. On admission had fever of 102. She was admitted to the hospital, today she underwent laparoscopic cholecystectomy by general surgery. Medicine was consulted to follow her medical conditions. Review of Systems Complete review of system performed, pertinent positives per HPI, otherwise negative 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 History of Any Multi-Drug Resistant Organisms: None Reported Past Surgical History: Adenoidectomy, Hysterectomy, Tonsillectomy, Tubal Ligation Additional Past Surgical History / Comment(s): COLONOSCOPY/EGD,several bronchoscopy, lung biopsy,LASIK Past Anesthesia/Blood Transfusion Reactions: Postoperative Nausea & Vomiting (PONV) Past Psychological History: No Psychological Hx Reported Smoking Status: Never smoker Past Alcohol Use History: None Reported Past Drug Use History: None Reported - Past Family History Mother Family Medical History: No Reported History Brother(s) Family Medical History: Cancer Medications and Allergies Home Medications Medication Instructions Recorded Confirmed Type Montelukast [Singulair] 10 mg PO DAILY 01/05/14 06/25/19 History Omeprazole [PriLOSEC] 20 mg PO DAILY 01/05/14 06/25/19 History Albuterol Inhaler [Ventolin Hfa 2 puff INHALATION DIRECTED PRN 04/25/16 06/25/19 History Inhaler] Ergocalciferol [Vitamin D2] 50,000 unit PO WE 04/25/16 06/25/19 History Fludrocortisone [Florinef] 0.1 mg PO DAILY 04/25/16 06/25/19 History Albuterol Nebulized [Ventolin 2.5 mg INHALATION DAILY PRN 11/04/17 06/25/19 History Nebulized] Sucralfate [Carafate] 1 gm PO QID PRN 11/04/17 06/25/19 History Amikacin Liposomal/Neb.accessr 1 dose INHALATION DAILY 08/05/18 06/25/19 History [Arikayce 590 mg/8.4 ml Vial] Azithromycin [Zithromax] 500 mg PO MOWEFR 08/05/18 06/25/19 History Ethambutol [Myambutol] 1,200 mg PO MOWEFR 08/05/18 06/25/19 History Potassium Gluconate 550 mg PO DAILY 08/05/18 06/25/19 History Cetirizine HCl [Zyrtec] 10 mg PO DAILY 04/07/19 06/25/19 History Dicyclomine HCl 10 mg PO TID PRN 04/07/19 06/25/19 History Hydrochlorothiazide 25 mg PO DAILY 05/05/19 06/25/19 History Ibuprofen [Motrin Ib] 400 mg PO Q6H PRN 05/05/19 06/25/19 History Vitamin C/Biotin [Hair, Skin and 1 each PO DAILY 05/05/19 06/25/19 History Nails] predniSONE 15 mg PO DAILY 05/05/19 06/25/19 History Alendronate Sodium [Fosamax] 70 mg PO Q7D 06/25/19 06/25/19 History Posaconazole 300 mg PO DAILY 06/25/19 06/25/19 History Allergies Allergy/AdvReac Type Severity Reaction Status Date / Time voriconazole Allergy Unknown HAIR LOSS, Verified 06/26/19 13:28 BLISTERS, RASHES, NAILS FELL OFF. adhesive Allergy blisters Verified 06/26/19 13:28 from cloth tape pneumococcal 23-valent Allergy chest pain Verified 06/26/19 13:28 polysacchari and dyspnea [From Pneumovax 23] meperidine [From Demerol] AdvReac Dyspnea Verified 06/26/19 13:28 cloth tape Allergy blisters Uncoded 06/26/19 13:28 Physical Exam Vitals: Vital Signs Temp Pulse Resp BP Pulse Ox 06/27/19 04:58 97.7 F 74 15 117/77 94 L 06/26/19 21:37 16 06/26/19 21:02 78 114/62 98 06/26/19 20:47 69 113/63 99 06/26/19 20:32 71 118/66 99 06/26/19 20:17 83 118/68 06/26/19 20:02 73 123/65 98 06/26/19 19:47 70 122/71 98 06/26/19 19:32 73 138/78 98 06/26/19 19:17 74 138/73 97 06/26/19 19:02 70 130/73 97 06/26/19 17:48 76 06/26/19 17:40 98.6 F 71 16 135/73 96 06/26/19 16:56 76 16 145/71 96 06/26/19 16:41 84 16 140/77 98 06/26/19 16:26 82 14 142/69 98 06/26/19 16:11 100.9 F H 88 14 146/71 97 06/26/19 13:24 99.2 F 81 16 124/73 89 L Intake and Output 06/26/19 06/27/19 06/27/19 22:59 06:59 14:59 Intake Total 1400 300 Output Total 190 48 Balance 1210 -48 300 Intake: IV 1400 Oral 300 Output: Drainage 70 48 Right Abdomen 70 48 Urine 100 Estimated Blood Loss 20 Other: Voiding Method Bedside Commode # Voids 2 1 1 Constitutional: No acute distress, conversant, pleasant Eyes:Anicteric sclerae, moist conjunctiva, no lid-lag, PERRLA, ENMT: Oropharynx clear, no erythema, exudates Neck: Supple, FROM, no masses, or JVD, No carotid bruits, No thyromegaly Lungs: Clear to auscultation, Clear to percussion, Normal respiratory effort, no accessory muscle use Cardiovascular: Heart regular in rate and rhythm, No murmurs, gallops, or rubs, No peripheral edema Abdominal: Surgical scars evident, tender no guarding, rebound or rigidity, Normoactive bowel sounds, No hepatomegaly, No splenomegaly, No palpable mass Skin: Normal temperature, tone, texture, turgor, no induration, No subcutaneous nodules, No rash, lesions, No ulcers Extremities: No digital cyanosis, No clubbing, Pedal pulses intact and symmetrical, Radial pulses intact and symmetrical, No calf tenderness Psychiatric: Alert and oriented to person, place and time, appropriate affect, intact judgement Neuro: Muscles Strength 5/5 in all 4 extremities, Sensation to light touch grossly present throughout, Cranial nerves II-XII grossly intact, no focal sensory deficits Results CBC & Chem 7: 06/27/19 07:54 06/27/19 07:54 Labs: Abnormal Lab Results - Last 24 Hours (Table) 06/27/19 06/27/19 Range/Units 07:54 07:54 WBC 14.1 H (3.8-10.6) k/uL RDW 16.1 H (11.5-15.5) % Neutrophils # 12.0 H (1.3-7.7) k/uL Potassium 3.2 L (3.5-5.1) mmol/L Carbon Dioxide 32 H (22-30) mmol/L Glucose 105 H (74-99) mg/dL Calcium 8.3 L (8.4-10.2) mg/dL AST 44 H (14-36) U/L Total Protein 5.6 L (6.3-8.2) g/dL Albumin 3.0 L (3.5-5.0) g/dL Assessment and Plan Plan: Acute cholecystitis Continue Zosyn Status post cholecystectomy Pain control with opiates and Tylenol History of MAC and multiple fungal infections Continue home antibiotics treatment with azithromycin, amikacin nebs and etha mbutol. Continue posaconazole. Hypokalemia Replace and follow POTS Asthma Irritable bowel syndrome. All stable Resume meds
[2019-06-27] MEDS ORDERED: NON FORMULARY DRUG (Alendronate Sodium [Fosamax] 70 MG) PO SCH (13:15)
[2019-06-27] MEDS ORDERED: diphenhydrAMINE 50 MG/ML 1 ML VIAL IVP PRN (14:39)
[2019-06-27] MEDS: FLUDROCORTISONE 0.1 MG TAB PO SCH (15:06)
[2019-06-27] MEDS: predniSONE 5 MG TAB PO SCH (15:06)
[2019-06-27] MEDS: ACETAMINOPHEN TAB 325 MG TAB PO PRN (21:30)
[2019-06-28] MEDS: SODIUM CHLORIDE 0.9% 1,000 ML IV SCH ×2 (05:36→16:16)
[2019-06-28] MEDS ORDERED: [UNRECOGNIZED DRUG - OTHER] INHALATION SCH (08:00)
[2019-06-28] MEDS: PIPERACILLIN-TAZOBACTAM 3.375 GM in SODIUM CHLORIDE 0.9% 100 ML IVPB SCH ×2 (08:15→16:57)
[2019-06-28] MEDS: predniSONE 5 MG TAB PO SCH (08:15)
[2019-06-28] MEDS: FLUDROCORTISONE 0.1 MG TAB PO SCH (08:16)
[2019-06-28] MEDS: HEPARIN SODIUM,PORCINE 5,000 UNIT/ML 1 ML VIAL SQ SCH ×3 (08:16→16:57)
[2019-06-28] MEDS: PANTOPRAZOLE 40 MG/10 ML VIAL IV SCH (08:16)
[2019-06-28] MEDS ORDERED: Posaconazole 300 MG PO SCH (09:00)
[2019-06-28] MEDS ORDERED: NON FORMULARY DRUG (Omeprazole [Prilosec] 20 MG) PO SCH (09:00)
[2019-06-28] MEDS ORDERED: POSACONAZOLE 100 MG PO SCH (09:00)
[2019-06-28] MEDS ORDERED: POTASSIUM GLUCONATE 550 MG PO SCH (09:00)
[2019-06-28] MEDS ORDERED: LORATADINE 10 MG TAB PO SCH (09:00)
[2019-06-28] MEDS ORDERED: MONTELUKAST 10 MG TAB PO SCH (09:00)
[2019-06-28 12:04] LABS: African American GFR (CKD) >90 (>60 ml/min/1.73 sqM); Anion Gap 7 mmol/L; Blood Urea Nitrogen 8 mg/dL (7-17); Calcium 8.4 mg/dL (8.4-10.2); Carbon Dioxide 26 mmol/L (22-30); Chloride 108 mmol/L (98-107); Glucose 111 mg/dL (74-99); Non-African American GFR(CKD) >90 (>60 ml/min/1.73 sqM); Potassium 3.2 mmol/L (3.5-5.1); Sodium 141 mmol/L (137-145)
[2019-06-28] MEDS ORDERED: Potassium Replacement Protocol 1 EACH MISC MISCELLANE PRN (12:18)
--- NOTE | 2019-06-28 14:06 | P.PN ---
Subjective Progress Note Date: 06/28/19 Principal diagnosis: abdominal pain Patient is having some gaseous feeling in the stomach with some nausea. She started to pass gas today. No bowel movement yet. No fevers or chills. Objective - Vital Signs Vital signs: Vital Signs Temp 98.0 F 06/28/19 05:25 Pulse 55 L 06/28/19 05:25 Resp 20 06/28/19 05:25 BP 125/73 06/28/19 05:25 Pulse Ox 97 06/28/19 05:25 Intake & Output 06/27/19 06/28/19 06/28/19 18:59 06:59 18:59 Intake Total 600 1640 Output Total 75 30 Balance 525 1610 Intake: Intake, IV Titration 1640 Amount Piperacillin-Tazobactam 3 200 .375 gm In Sodium Chloride 0.9% 100 ml @ 25 mls/hr IVPB Q8HR WAN Rx# :[id number] Sodium Chloride 0.9% 1, 1440 000 ml @ 120 mls/hr IV . Q8H20M WAN Rx#:[id number] Oral 600 Output: Drainage 75 30 Right Abdomen 75 30 Other: # Voids 1 1 - Exam Constitutional: No acute distress, conversant, pleasant Eyes:Anicteric sclerae, moist conjunctiva, no lid-lag, PERRLA, ENMT: Oropharynx clear, no erythema, exudates Neck: Supple, FROM, no masses, or JVD, No carotid bruits, No thyromegaly Lungs: Clear to auscultation, Clear to percussion, Normal respiratory effort, no accessory muscle use Cardiovascular: Heart regular in rate and rhythm, No murmurs, gallops, or rubs, No peripheral edema Abdominal: drain in place, Soft, tender, no guarding, rebound or rigidity, Normoactive bowel sounds, No hepatomegaly, No splenomegaly, No palpable mass Skin: Normal temperature, tone, texture, turgor, no induration, No subcutaneous nodules, No rash, lesions, No ulcers Extremities: No digital cyanosis, No clubbing, Pedal pulses intact and symmetrical, Radial pulses intact and symmetrical, No calf tenderness Psychiatric: Alert and oriented to person, place and time, appropriate affect, i ntact judgement Neuro: Muscles Strength 5/5 in all 4 extremities, Sensation to light touch grossly present throughout, Cranial nerves II-XII grossly intact, no focal sensory deficits - Labs CBC & Chem 7: 06/27/19 07:54 06/28/19 10:50 Labs: Abnormal Lab Results - Last 24 Hours (Table) 06/28/19 Range/Units 10:50 Potassium 3.2 L (3.5-5.1) mmol/L Chloride 108 H (98-107) mmol/L Glucose 111 H (74-99) mg/dL Microbiology - Last 24 Hours (Table) 06/25/19 18:15 Group A Strep Throat Culture - Final Throat Assessment and Plan Plan: Acute cholecystitis Continue Zosyn Status post cholecystectomy 06/27 Pain control with opiates and Tylenol History of MAC and multiple fungal infections Continue home antibiotics treatment with azithromycin, amikacin nebs and ethambutol. Continue posaconazole. Hypokalemia Replace and follow POTS Asthma Irritable bowel syndrome. All stable Resume meds
[2019-06-28 14:10] VITALS: BMI 31.6
--- NOTE | 2019-06-28 15:02 | P.DS ---
Providers Date of admission: 06/25/19 19:59 Expected date of discharge: 06/28/19 Attending physician: Papa Glaser Consults: 06/26/19 17:20 Consult Physician Routine Consulting Provider: Alonso Robertson Consult Reason/Comments: MEDICAL MANAGEMENT Do you want consulting provider notified?: Yes 06/27/19 06:55 Consult Physician Routine Consulting Provider: Yany Perry Consult Reason/Comments: medical management Do you want consulting provider notified?: Yes Primary care physician: Alonso Robertson Hospital Course: this a 58-year-old female underwent laparoscopic ostectomy performed by Dr. Mosquera. Patient did well postoperatively. Please see chart for details. Procedures: laparoscopic cholecystectomy Patient Condition at Discharge: Good Plan - Discharge Summary Discharge Rx Participant: No New Discharge Prescriptions: New Docusate [Colace] 100 mg PO BID #20 capsule HYDROcodone/APAP 5-325MG [B[place]ast 5-325] 1 tab PO Q6HR PRN #10 tab PRN Reason: Pain No Action Omeprazole [PriLOSEC] 20 mg PO DAILY Montelukast [Singulair] 10 mg PO DAILY Fludrocortisone [Florinef] 0.1 mg PO DAILY Ergocalciferol [Vitamin D2] 50,000 unit PO WE Albuterol Inhaler [Ventolin Hfa Inhaler] 2 puff INHALATION DIRECTED PRN PRN Reason: Shortness Of Breath Sucralfate [Carafate] 1 gm PO QID PRN PRN Reason: Heartburn Albuterol Nebulized [Ventolin Nebulized] 2.5 mg INHALATION DAILY PRN PRN Reason: Shortness Of Breath Potassium Gluconate 550 mg PO DAILY Ethambutol [Myambutol] 1,200 mg PO MOWEFR Azithromycin [Zithromax] 500 mg PO MOWEFR Amikacin Liposomal/Neb.accessr [Arikayce 590 mg/8.4 ml Vial] 1 dose INHALATION DAILY Dicyclomine HCl 10 mg PO TID PRN PRN Reason: IBS Cetirizine HCl [Zyrtec] 10 mg PO DAILY predniSONE 15 mg PO DAILY Vitamin C/Biotin [Hair, Skin and Nails] 1 each PO DAILY Ibuprofen [Motrin Ib] 400 mg PO Q6H PRN PRN Reason: Pain Hydrochlorothiazide 25 mg PO DAILY Alendronate Sodium [Fosamax] 70 mg PO Q7D Posaconazole 300 mg PO DAILY Discharge Medication List Montelukast [Singulair] 10 mg PO DAILY 01/05/14 [History] Omeprazole [PriLOSEC] 20 mg PO DAILY 01/05/14 [History] Albuterol Inhaler [Ventolin Hfa Inhaler] 2 puff INHALATION DIRECTED PRN 04/25/16 [History] Ergocalciferol [Vitamin D2] 50,000 unit PO WE 04/25/16 [History] Fludrocortisone [Florinef] 0.1 mg PO DAILY 04/25/16 [History] Albuterol Nebulized [Ventolin Nebulized] 2.5 mg INHALATION DAILY PRN 11/04/17 [History] Sucralfate [Carafate] 1 gm PO QID PRN 11/04/17 [History] Amikacin Liposomal/Neb.accessr [Arikayce 590 mg/8.4 ml Vial] 1 dose INHALATION DAILY 08/05/18 [History] Azithromycin [Zithromax] 500 mg PO MOWEFR 08/05/18 [History] Ethambutol [Myambutol] 1,200 mg PO MOWEFR 08/05/18 [History] Potassium Gluconate 550 mg PO DAILY 08/05/18 [History] Cetirizine HCl [Zyrtec] 10 mg PO DAILY 04/07/19 [History] Dicyclomine HCl 10 mg PO TID PRN 04/07/19 [History] Hydrochlorothiazide 25 mg PO DAILY 05/05/19 [History] Ibuprofen [Motrin Ib] 400 mg PO Q6H PRN 05/05/19 [History] Vitamin C/Biotin [Hair, Skin and Nails] 1 each PO DAILY 05/05/19 [History] predniSONE 15 mg PO DAILY 05/05/19 [History] Alendronate Sodium [Fosamax] 70 mg PO Q7D 06/25/19 [History] Posaconazole 300 mg PO DAILY 06/25/19 [History] Docusate [Colace] 100 mg PO BID #20 capsule 06/28/19 [Rx] HYDROcodone/APAP 5-325MG [B[place]ast 5-325] 1 tab PO Q6HR PRN #10 tab 06/28/19 [Rx] Follow up Appointment(s)/Referral(s): Alonso Robertson DO [Primary Care Provider] - 1-2 days Papa Glaser MD [Medical Doctor] - 1 Week
[2019-06-28 15:19] VITALS: BP 126/79; PULSE 71; RESP 16; TEMP 98.2
[2019-06-28] MEDS: POTASSIUM CHLORIDE ER 20 MEQ TAB.ER PO SCH ×2 (16:16→16:57)
[2019-06-28] MEDS: HYDROcodone/APAP 5-325MG 1 EACH TAB PO PRN (18:09)
[2019-06-29] MEDS ORDERED: AZITHROMYCIN 500 MG TAB PO SCH (09:00)
[2019-06-29] MEDS ORDERED: ETHAMBUTOL 1200 MG PO SCH (09:00)
== END 2019-06-28 18:56 | disposition home or self-care (01) | DRG 418 ==
LOC: EC 17:37 → 6NMEDSUR 19:59
PROVIDERS: ADMIT Surgery; ATTEND Surgery
PROC: 0FT44ZZ Resection of Gallbladder, Percutaneous Endoscopic Approach (ICD-10-PCS; principal; 2019-06-26 14:30)
DX: K80.00 Calculus of gallbladder with acute cholecystitis without obstruction (principal); E87.2 Acidosis; K82.A1 Gangrene of gallbladder in cholecystitis; J43.9 Emphysema, unspecified; Z79.52 Long term (current) use of systemic steroids; Z79.83 Long term (current) use of bisphosphonates; Z79.899 Other long term (current) drug therapy; Z90.710 Acquired absence of both cervix and uterus; Z88.5 Allergy status to narcotic agent; Z88.8 Allergy status to other drugs, medicaments and biological substances
CPT/HCPCS: 36415; 71046; 74177; 76705; 80048; 80053; 81001; 83605; 83690; 85025; 85610; 85730; 87081; 87430; 87502; 88304; 93005; 96361; 96374; 96375; 96376; 99285

== ENCOUNTER → 2019-08-12 | Outpatient (CLI) | payer BC ==
--- NOTE | 2019-08-13 08:23 | CT ---
EXAMINATION TYPE: CT chest w con DATE OF EXAM: 08/12/2019 COMPARISON: Prior chest x-ray 04/14/2019 HISTORY: Mycobacterial infection CT DLP: 308.3 mGycm Automated exposure control for dose reduction was used. CONTRAST: CT scan of the chest is performed with IV Contrast, patient injected with 100 mL of Isovue 300. FINDINGS: Apical pleural thickening is again seen and is stable. LUNGS: The inflammatory change seen in the right upper lobes is present, bronchiectasis has become le ss conspicuous, some residual scarring is noted. Minimal nodularity in the lingula shows a stable arias earance. There is no pleural or pericardial effusion. MEDIASTINUM: There are no greater than 1 cm hilar or mediastinal lymph nodes. No pericardial effusi on is seen. AORTA: No additional significant abnormality is seen. OTHER: Patient is post cholecystectomy. Low density in the liver may represent hepatic steatosis. Th ere is a spinal curvature. IMPRESSION: Improvement in aeration as described, some residual inflammatory changes are present.
== END | disposition home or self-care (01) ==
LOC: RADCTMAIN 16:21
PROVIDERS: ATTEND Internal Medicine Critical Care Medicine
DX: J98.8 Other specified respiratory disorders (principal); A31.9 Mycobacterial infection, unspecified; Z88.5 Allergy status to narcotic agent
CPT/HCPCS: 71260; Q9967

== ENCOUNTER → 2020-01-13 | Day surgery (SDC) | payer BC ==
[2020-01-11 11:15] VITALS: BMI 32.8
[~2020-01-13] MED LIST changes: -ALBUTEROL NEBULIZED 2.5 MG/3 ML INHALATION ONE; +ATROPINE SULFATE 0.4 MG/ML 1 ML VIAL ONE; -DEXAMETHASONE SOD PHOSPHATE 10 MG/ML 1 ML VIAL IV ONE; -GLYCOPYRROLATE 0.2 MG/ML 2 ML VIAL ONE; +IV FLUID CONTINUATION 1,000 ML IV ONE; +LACTATED RINGERS 1,000 ML BAG IV ONE; +LIDOCAINE 1% (10MG/ML) FOR IV START INTRADERMA PRN; -LIDOCAINE 1% 20 ML VIAL (10MG/ML) FOR IV START INTRADERMA ONE; +LIDOCAINE 2% INJ 20 MG/ML INTRATRACH ONE; -NEOSTIGMINE 1 MG/ML 10 ML VIAL ONE; -ONDANSETRON 4 MG/2 ML VIAL IVP STA; +ONDANSETRON 4 MG/2 ML VIAL ONE; -ROCURONIUM BROMIDE 10 MG/ML 10 ML VIAL IV ONE; -SCOPOLAMINE 1.5MG/72HR PATCH TRANSDERM STA; -SUCCINYLCHOLINE CHLORIDE 100 MG/5 ML SYR IV ONE
[2020-01-13 16:01] LABS: Appearance,BF Hazy; Color,BF Colorless; Nucleated Cells, Body Fluid 165 /uL; RBC, Body Fluid 230 /uL
[2020-01-13 16:19] LABS: Mononuclear WBC,Body Fluid 3 %; Polynuclear WBC,Body Fluid 97 %; Total Cells Counted,Body Fluid 100
--- NOTE | 2020-01-13 22:09 | PCN ---
PROCEDURE NOTE DATE OF SERVICE: 01/13/2020 PROCEDURE: Bronchoscopy, airway examination, therapeutic lavage, BAL. PREOPERATIVE DIAGNOSIS: Rule out recurrent Mycobacterium avium complex infection. POSTOPERATIVE DIAGNOSIS: Rule out recurrent Mycobacterium avium complex infection. PROCEDURE DESCRIPTION: There was informed consent and universal timeout. The patient's procedure took place in room #1. The operators were Dr. Robertson and Michela Aviles. After the patient was adequately sedated and being fully monitored, the bronchoscope was inserted without difficulty through the right nostril. It passed through the nasopharynx into the oropharynx and down into the hypopharynx. There were some secretions noted in the hypopharynx, particularly in the left piriform sinus. The anterior commissure, true cords, false cords, arytenoids, piriform sinuses, right and left valleculae and epiglottis all otherwise appeared normal. After topicalization, the bronchoscope was pushed through the glottic opening into the trachea. The trachea was very erythematous and hyperemic. There were secretions noted throughout. They were suctioned. The tracheal jenise was sharp. The right and left mainstem bronchi were topicalized. The right upper lobe and its 3 segments, right middle lobe and its 2 segments, the right lower lobe and its 5 segments, the left upper lobe proper and its 2 segments, the lingula and its 2 segments, and the left lower lobe and its 4 segments all had similar findings of diffuse erythema, hyperemia and bronchitis. There was some vascular friability and some engorgement of the blood vessels and the mucosa. There was no dominant mass or lesion. There were thin secretions noted throughout. They were somewhat purulent-looking. There was no bleeding. The bronchoscope was then wedged into the right middle lobe. We did a BAL. Thirty mL was recovered. It will be sent for analysis. All of the secretions were suctioned with the aid of saline. The patient tolerated the procedure well and is being recovered. There was no immediate complication. MMODL / IJN: [id number] /
[2020-01-15 08:00] VITALS: BP 123/75; PULSE 74; RESP 16
== END | disposition home or self-care (01) ==
LOC: ORWHC2ENDO 10:04
PROVIDERS: ATTEND Internal Medicine Critical Care Medicine
DX: J40 Bronchitis, not specified as acute or chronic (principal); J81.1 Chronic pulmonary edema; I49.8 Other specified cardiac arrhythmias; I10 Essential (primary) hypertension; J44.9 Chronic obstructive pulmonary disease, unspecified; K21.9 Gastro-esophageal reflux disease without esophagitis; K58.9 Irritable bowel syndrome, unspecified; Z88.5 Allergy status to narcotic agent; Z88.7 Allergy status to serum and vaccine; Z91.09 Other allergy status, other than to drugs and biological substances; Z88.8 Allergy status to other drugs, medicaments and biological substances; Z79.899 Other long term (current) drug therapy; Z79.52 Long term (current) use of systemic steroids; Z91.89 Other specified personal risk factors, not elsewhere classified; Z84.89 Family history of other specified conditions
CPT/HCPCS: 31624; 87798 ×3; 87496; 87498; 87529; 88108; 88305; 89050; 88312; 87252; 87502; 87634; 87070; 87205; 87116; 87102; 87206; J2001; J2250; J2704

== ENCOUNTER → 2021-06-27 | Outpatient (CLI) | payer SELFPAY ==
[~2021-06-27] MED LIST changes: -ALBUTEROL NEB (CONC) 2.5 MG/0.5 ML INHALATION ONE; -ATROPINE SULFATE 0.4 MG/ML 1 ML VIAL IM ONE; -ATROPINE SULFATE 0.4 MG/ML 1 ML VIAL ONE; +BAMLANIVIMAB (EUA) 700 MG, ETESEVIMAB (EUA) 1,400 MG in SODIUM CHLORIDE 0.9% 50 ML IVPB NR; -IV FLUID CONTINUATION 1,000 ML IV ONE; -LACTATED RINGERS 1,000 ML BAG IV ONE; -LACTATED RINGERS 1,000 ML IV SCH; -LIDOCAINE 1% (10MG/ML) FOR IV START INTRADERMA PRN; -LIDOCAINE 2% (PF) 20 MG/ML 5 ML VIAL INHALATION ONE; -LIDOCAINE 2% INJ 20 MG/ML INTRATRACH ONE; -LIDOCAINE VISCOUS 300 MG/15 ML CUP MUCOUS MEM ONE; -MIDAZOLAM 2 MG/2 ML VIAL ONE; -ONDANSETRON 4 MG/2 ML VIAL ONE; -PROPOFOL 10 MG/ML 20 ML VIAL IV ONE; -SODIUM CHLORIDE 0.9% 1,000 ML IV SCH; +SODIUM CHLORIDE 0.9% 50 ML IVPB NR; +SODIUM CHLORIDE 0.9% 500 ML 500 ML in EMPTY BAG 1 BAG IV PRN
[2021-06-27 13:59] VITALS: RESP 16
[2021-06-27 14:13] VITALS: BP 98/64; PULSE 63; TEMP 98
== END | disposition home or self-care (01) ==
LOC: PROCWHC3 13:03
PROVIDERS: ATTEND Family Medicine
DX: U07.1 COVID-19 (principal)
CPT/HCPCS: 96360; J3490; M0245

== ENCOUNTER 2021-10-20 05:56 | Day surgery (SDC) | payer BC, MEDICARE ==
[2021-10-18 11:57] VITALS: BMI 32.8
[~2021-10-20 05:56] MED LIST changes: -BAMLANIVIMAB (EUA) 700 MG, ETESEVIMAB (EUA) 1,400 MG in SODIUM CHLORIDE 0.9% 50 ML IVPB NR; +Pre Op ABX Message 1 EACH MISC MISCELLANE ONE; -SODIUM CHLORIDE 0.9% 50 ML IVPB NR; -SODIUM CHLORIDE 0.9% 500 ML 500 ML in EMPTY BAG 1 BAG IV PRN
[2021-10-20 06:39] LABS: Glucose,Whole Blood 111 mg/dL (75-99)
[2021-10-20] MEDS ORDERED: LACTATED RINGERS 1,000 ML IV ONE ×2 (06:42→09:25)
[2021-10-20] MEDS ORDERED: ONDANSETRON 4 MG/2 ML VIAL ONE (06:48)
[2021-10-20] MEDS ORDERED: HYDROCORTISONE SUCCINATE 100 MG/2 ML VIAL IVP ONE (06:56)
[2021-10-20] MEDS ORDERED: SCOPOLAMINE 1 MG/72 HR PATCH TRANSDERM ONE (06:57)
[2021-10-20] MEDS ORDERED: fentaNYL (PF) 50 MCG/ML 2 ML AMP IVP ONE (07:08)
[2021-10-20] MEDS ORDERED: MIDAZOLAM 2 MG/2 ML VIAL IVP ONE (07:08)
[2021-10-20] MEDS ORDERED: LIDOCAINE 1% INJ 10MG/ML (20 ML MDV) ONE (07:25)
[2021-10-20] MEDS ORDERED: SODIUM CHLORIDE 0.9% (PF) 10 ML VIAL ONE (07:25)
[2021-10-20] MEDS ORDERED: ROPIVACAINE 5 MG/ML 30 ML VIAL ONE (07:25)
[2021-10-20] MEDS ORDERED: SUCCINYLCHOLINE CHLORIDE 100 MG/5 ML SYR IV ONE (07:25)
[2021-10-20] MEDS ORDERED: MIDAZOLAM 2 MG/2 ML VIAL ONE (07:25)
[2021-10-20] MEDS ORDERED: PROPOFOL 10 MG/ML 20 ML VIAL IV ONE (07:25)
[2021-10-20] MEDS ORDERED: fentaNYL (PF) 50 MCG/ML 2 ML AMP ONE (07:25)
[2021-10-20] MEDS ORDERED: SODIUM CHLORIDE 0.9% 100 ML with ceFAZolin 2 GM IV ONE ×2 (07:35)
--- NOTE | 2021-10-20 08:52 | P.ANPRN ---
Procedure Note - Anesthesia - Nerve Block Performed Right Popliteal Single Time Out Performed: Yes ([id number]) Date of Procedure: 10/20/21 Procedure Start Time: :08 Procedure Stop Time: 07:13 Location of Patient: PreOp Indication: Acute Post-Operative Pain, Requested by Surgeon Specifically requested for management of pain by DrNew: Galileo Monahan Sedation Type: Sedate with meaningful contact maintained Preparation: Sterile Prep Position: Supine Catheter: None Needle Types: Pajunk Needle Gauge: 21 Ultrasound used to visualize needle placement: Yes Ultrasound used to observe medication spread: Yes Injectate: 0.5% Ropivacaine (see comment for volume) (15cc + 10cc nacl) Blood Aspirated: No Pain Paresthesia on Injection Noted: No Resistance on Injection: Normal Image Stored and Saved: Yes Events: Uneventful and Well Tolerated
--- NOTE | 2021-10-20 08:56 | P.ANPRN ---
Procedure Note - Anesthesia - Nerve Block Performed Right Adductor Canal Single Time Out Performed: Yes ([id number]) Date of Procedure: 10/20/21 Procedure Start Time: 07:14 Procedure Stop Time: 07:18 Location of Patient: PreOp Indication: Acute Post-Operative Pain, Requested by Surgeon Specifically requested for management of pain by DrNew: Galileo Monahan Sedation Type: Sedate with meaningful contact maintained Preparation: Sterile Prep Position: Supine Catheter: None Needle Types: Pajunk Needle Gauge: 21 Ultrasound used to visualize needle placement: Yes Ultrasound used to observe medication spread: Yes Injectate: 0.5% Ropivacaine (see comment for volume) (15cc+ +10cc nacl) Blood Aspirated: No Pain Paresthesia on Injection Noted: No Resistance on Injection: Normal Image Stored and Saved: Yes Events: Uneventful and Well Tolerated
[2021-10-20 09:51] VITALS: TEMP 97
--- NOTE | 2021-10-20 09:52 | P.OP ---
Date of Procedure: 10/20/21 Preoperative Diagnosis: 1. Hallux valgus right foot 2. Hammertoes digits 2 through 4 right foot Postoperative Diagnosis: 1. Same 2. Same Procedure(s) Performed: 1. Modified Lapidus bunionectomy right foot 2. Hammertoe corrections second and third digits right foot 3. Flexor and extensor tenotomies right fourth toe Implants: Lapiplasty plate and screws Arthrex hammertoe implant Anesthesia: HILLARY Surgeon: Galileo Monahan Estimated Blood Loss (ml): 5 Pathology: none sent Condition: stable Disposition: PACU Description of Procedure: Prior to the patient being brought to the operative room, anesthesia administered nerve block on the right lower extremity. Then the patient brought into the operative room placed on table supine position. Timeout was taken to confirm correct patient identifiers, correct procedure, and correct site of surgery. When all staff in the room were in agreement with the timeout the patient was induced placed under general anesthesia. A well-padded tourniquet was placed on the ankle. The foot was then prepped and draped in usual manner. The foot was exsanguinated and the tourniquet inflated 250 mmHg. Attention was directed over the medial aspect of the first metatarsal phalangeal joint where a linear incision was made between the neurovascular structures. The incision was deepened down to the saphenous layer careful to identify, avoid, and retract any neurovascular structures and cauterize any bleeding vessels. Dissection was then carried down to the joint capsule where 2 semi- elliptical converging incisions were made along the medial aspect of the first metatarsal phalangeal joint capsule. The interposing piece of capsule was removed from the surgical field and the capsule reflected from medial aspect of first metatarsal head. The sesamoid apparatus was distracted plantarly in the lateral sesamoid collateral ligament was transected and lateral capsulotomy performed. Then attention was directed to the dorsal aspect of the foot over the first tarsometatarsal joint. A linear incision was made medial to the extensor hallucis longus tendon with the center of the incision over the first tarsometatarsal joint. The incision was deepened down to the subcutaneous tissue careful to identify, avoid, and retract any neurovascular structures and cauterize any bleeding vessels. Blunt dissection was then carried down to the joint capsule which was incised medial to the extensor hallucis longus tendon area and subperiosteal dissection was performed to reflect the soft tissue away from the joint. An osteotome was used to free the soft tissue from around the joint surfaces to help mobilize the frontal plane correction. The guidewires and placed through the base of the first metatarsal from medial to lateral. This is was used as a joystick for the frontal plane rotation correction. Small fulcrum was placed at the base of the first metatarsal, the joint seeker was also placed at the first tarsometatarsal joint as far lateral as possible. And then the reduction clamp was applied around the first metatarsal and lateral to the second metatarsal. While holding the frontal plane correction the reduction clamp was reduced close the intermetatarsal angle. Once the amount of correc tion was except while under fluoroscopy for wire was placed to the reduction clamp to lock the correction in place. The cutting guide was then placed over the joint seeker then held in place with 2 straight pins and then one ankle pin so it did not slide dorsally. The bone cuts were then made to the cutting jig. Cutting jig was removed, leaving the [address], as was the joint seeker fulcrum. The compression/distraction devices then placed over the remaining wires and then opened to allow access to the cut surfaces of bone. Both cut surfaces were removed fully with no remaining pieces. The wound is then irrigated thoroughly with antibiotic saline. Then a 2.0 mm drill bit was used to aggressively fenestrate the conjoining surfaces of the arthrodesis site. The fulcrum was reinserted at the base of the first metatarsal and the lateral aspect. Then the distraction device was reversed a compression and while holding the great toe dorsiflexed the arthrodesis site was compressed fully. Fluoroscopy was used to check the alignment which showed full compression at the arthrodesis site with maintain correction intermetatarsal angle and anatomic alignment of the sesamoid. Threaded olive wire was then inserted across the arthrodesis site for temporary fixation. The medial plate was applied first it was aligned under fluoroscopy and then temporarily fixated. The 2 screw holes closest to the arthrodesis site were filled with the compression/locking screws until they were fully seated the outer 2 screws were done with straight locking screws. The dorsal straight plate was then positioned under fluoroscopy until correct and then temporarily fixated. The 2 holes closest the arthrodesis site were filled with the compression/locking screw in the outer holes of the straight locking screws. All extraneous instrumentation was removed and then a final fluoroscopic imaging showed full correction intermetatarsal angle proper placement of hardware there is no gapping at the arthrodesis site and the sesamoids are anatomically aligned. Stress was placed in the first webspace to tested for stability of the intercuneiform joint. There was abnormal movement between the cuneiforms, therefore and intercuneiform screw was placed from medial to lateral just proximal to the plate and screws. Screw extended through the medial cuneiform and into the intermediate cuneiform. All threads were past the intercuneiform joint. Stress was done under fluoroscopy again and there was no instability noted. A sagittal saw was then used to resect portion of the medial aspect the first metatarsal head that was protruding and on the roughened edges smoothed. All wounds were thoroughly irrigated with antibiotic saline. Capsular closure was done with 0 Vicryl in both incisions. All incisions were closed subcutaneously with 4-0 Monocryl. The large dorsal and medial incisions were closed with 3-0 Stratafix in a running subcuticular manner for skin. Dermal glue was applied to all the incisions and allowed to dry. Attention then directed to the second and third digits where linear incisions are made over the proximal interphalangeal joints. The incisions were deepened down to the subcutaneous tissue careful to identify, avoid, and retract any neurovascular structures and cauterize any bleeding vessels. Dissection was carried down to level the joint capsule over the proximal interphalangeal joint. Transverse incisions were made to the proximal interphalangeal joint, resecting the extensor tendon and the collateral ligaments. A sagittal saw was used to resect the proximal phalangeal head of both digits in both were removed from the surgical field. A curette was used to remove the articular cartilage of the base of the middle phalanx. Guidewires for the implants were then used to create ship pilot holes in the proximal phalanx and then the overdrill was performed the wires were removed and then inserted the central aspect of the base of middle phalanx and advanced out the distal aspect of the toes. The overdrill was then completed the middle phalanx. A small portion a wire was left protruding from the base of middle phalanx so that the implant could be inserted on the first implant was placed in the second digit the threaded portion was placed into the middle phalanx. Then the arms of the proximal portion were then inserted in the ship pilot hole in the proximal phalanx of the impacted together. Fluoroscopy showed that there was good bony contact at the arthrodesis site and proper placement of the hardware. The wire was advanced to deployed the arms and then removed. The same procedure was performed and the third digit as on the second with no exceptions. The fourth digit had a flexible flexion contracture at the proximal phalangeal joint. Small stab incision was made on the medial aspect of the fourth toe in the area of the proximal interphalangeal joint. The blade was rotated sideways and advanced deep to the flexor tendon and then the blade was rotated plantarly and the digit dorsiflexed to resect the flexor tendon which allowed the digit to lie flat. The digital incisions were all thoroughly irrigated. Tendon reapproximation for the second and third digits was done with 4-0 Monocryl. All other incisions were closed with 3-0 nylon. An Arthrex jumpstart dressing was placed over the bunion incisions. Nonadherent gauze placed over the digital incisions. Then a bulky dry dressing was applied to foot. The tourniquet was released capillary refill return to all digits on the foot. The patient then placed in a well-padded, well molded posterior mold/sugar tong splint. The foot was held in neutral position as it dried. Once dry, the patient was reversed from general anesthesia and taken to recovery with vital signs stable.
[2021-10-20 10:23] VITALS: RESP 16
[2021-10-20 11:07] VITALS: BP 115/80; PULSE 76
== END 2021-10-20 11:33 | disposition home or self-care (01) ==
LOC: OR 05:56
PROVIDERS: ATTEND Podiatrist
DX: M20.11 Hallux valgus (acquired), right foot (principal); M20.41 Other hammer toe(s) (acquired), right foot; J44.9 Chronic obstructive pulmonary disease, unspecified; G89.18 Other acute postprocedural pain; Z80.3 Family history of malignant neoplasm of breast; Z79.899 Other long term (current) drug therapy; Z91.048 Other nonmedicinal substance allergy status
CPT/HCPCS: 28292; 28285 ×2; 64447; 64445; 76942; C1713; J2250; J1720; J0690; J2405; J2001; J3010; J2795; J0330; J2704

== ENCOUNTER 2022-05-25 07:52 | Day surgery (SDC) | payer MEDICARE ==
[~2022-05-25 07:52] MED LIST changes: +DEXAMETHASONE SOD PHOSPHATE 4 MG/ML 1 ML VIAL IV ONE; +HYDROmorphone 0.5 MG/0.5 ML SYRINGE IVP PRN; +LACTATED RINGERS 1,000 ML IV SCH; +MIDAZOLAM 2 MG/2 ML VIAL IV PRN; +ONDANSETRON 4 MG/2 ML VIAL IVP ONE; +SCOPOLAMINE 1 MG/72 HR PATCH TRANSDERM ONE
[2022-05-25 08:39] VITALS: RESP 16
[2022-05-25 08:41] LABS: Glucose,Whole Blood 105 mg/dL (70-110)
[2022-05-25] MEDS ORDERED: fentaNYL (PF) 50 MCG/ML 2 ML AMP ONE (09:34)
[2022-05-25] MEDS ORDERED: MIDAZOLAM 2 MG/2 ML VIAL ONE (09:34)
[2022-05-25] MEDS ORDERED: SODIUM CHLORIDE 0.9% 100 ML BAG ONE (09:34)
[2022-05-25] MEDS ORDERED: LIDOCAINE 2% INJ 20 MG/ML (2 ML VIAL) ONE (09:34)
[2022-05-25] MEDS ORDERED: ceFAZolin 1,000 MG VIAL ONE (09:34)
[2022-05-25] MEDS ORDERED: LIDOCAINE 4% LTA KIT (4 ML) TOPICAL ONE (09:34)
[2022-05-25] MEDS ORDERED: PROPOFOL 10 MG/ML 20 ML VIAL IV ONE (09:34)
[2022-05-25] MEDS ORDERED: SUCCINYLCHOLINE CHLORIDE 200 MG/10 ML VIAL IV ONE (09:34)
[2022-05-25] MEDS ORDERED: ceFAZolin 1,000 MG VIAL IVPB ONE (09:38)
[2022-05-25] MEDS ORDERED: BUPIVACAINE (PF) 0.5% 30 ML VIAL SQ ONE (09:38)
[2022-05-25 10:36] VITALS: TEMP 97.4
[2022-05-25 12:26] VITALS: BP 124/78; PULSE 78
--- NOTE | 2022-05-29 09:15 | OP ---
OPERATIVE REPORT PREOPERATIVE DIAGNOSIS:: Subluxation of 1st metatarsophalangeal joint, right foot. POSTOPERATIVE DIAGNOSIS:: Subluxation of 1st metatarsophalangeal joint, right foot. OPERATION:: Open repair of dislocated 1st metatarsophalangeal joint, right foot. ESTIMATED BLOOD LOSS:: Minimal. SPECIMEN TAKEN:: None. ANESTHESIA: General. HEMOSTASIS: Right ankle tourniquet at 250 mmHg. MATERIALS: One Arthrex internal brace. INJECTABLES: 20 mL of 0.25% Marcaine preop. COMPLICATIONS: None. NARRATIVE:: The patient was brought into the operative room and placed on the table in supine position. A time-out was taken to confirm correct patient identifiers, correct laterality of surgery, and correct procedure. Once the staff in the room were in agreement with the time-out, the patient was induced and placed under general anesthesia. A well-padded tourniquet was placed on the right ankle and then 20 mL of 0.25% Marcaine was injected as right ankle block. Then, the right foot was prepped and draped in usual manner. The right foot was exsanguinated and the tourniquet inflated to 250 mmHg. Attention was directed to the medial aspect of the 1st metatarsophalangeal joint where a linear incision was made between the neurovascular structures. It was deepened down to the subcutaneous tissue carefully to identify, avoid, and retract any neurovascular structures and cauterize any bleeding vessels. Blunt dissection was then carried down to the level of the joint capsule. A linear capsular incision was made from dorsal to plantar at the level of the 1st metatarsophalangeal joint and then the sesamoid apparatus was distracted plantarly. The sesamoid collateral ligament was transected and a lateral capsulotomy performed, which allowed for more transverse correction of the great toe. Once that was completed, the great toe was held in a corrected position and then a small portion of the capsule was taken from the vertical incision to allow for correction and tightening of the capsule. Once that was completed, the wound was thoroughly irrigated with antibiotic saline. With the great toe held in the corrected position, the capsule was sutured with 0 Vicryl and tied until the desired amount of correction was achieved, and then once that was completed, drill holes for the internal brace were made in the medial side of the base of the proximal phalanx of the great toe and on the plantar medial side of the 1st metatarsal near the neck. The distal anchor was inserted first, locking the suture in place, and then utilizing proper tensioning techniques, the proximal anchor was inserted into the 1st metatarsal, keeping tension on the suture. Once completed, the great toe was checked for stability and there was no longer any lateral displacement and the digit remained rectus. All sutures were then cut and the wound irrigated with antibiotic saline. Subcutaneous closed with 2-0 and 4-0 Monocryl. Skin closed with 2-0 and 3-0 Stratafix in a running subcuticular manner. [place] glue was applied, allowed to dry, and then covered with Steri-Strips, an Arthrex Jumpstart dressing, and then a bulky dry dressing. The tourniquet was released and capillary refill returned to all digits on the right foot. Anesthesia was reversed and the patient was taken to recovery with vital signs stable. KODAK / MANOJN: [id number] /
== END 2022-05-25 13:03 | disposition home or self-care (01) ==
LOC: OR 07:52
PROVIDERS: ATTEND Podiatrist
DX: S93.141A Subluxation of metatarsophalangeal joint of right great toe, initial encounter (principal); M20.11 Hallux valgus (acquired), right foot; M20.41 Other hammer toe(s) (acquired), right foot; J44.9 Chronic obstructive pulmonary disease, unspecified; K21.9 Gastro-esophageal reflux disease without esophagitis; Z79.899 Other long term (current) drug therapy; Z83.3 Family history of diabetes mellitus; Z82.49 Family history of ischemic heart disease and other diseases of the circulatory system; Z90.710 Acquired absence of both cervix and uterus; Z98.51 Tubal ligation status; Z90.89 Acquired absence of other organs; Z90.49 Acquired absence of other specified parts of digestive tract; Z48.89 Encounter for other specified surgical aftercare; X58.XXXA Exposure to other specified factors, initial encounter
CPT/HCPCS: 28645; C1713; J2250; J0330; J1100; J2405; J0690; J3010; J2704; J2001

== ENCOUNTER 2023-02-07 20:18 | Emergency (ER) | payer MEDICARE ==
--- NOTE | 2023-02-07 21:51 | ED ---
General Adult HPI - General Chief complaint: Abdominal Pain Stated complaint: Abd pain Time Seen by Provider: 02/07/23 20:37 Source: patient, RN notes reviewed Mode of arrival: ambulatory Limitations: no limitations - History of Present Illness Initial comments: 62-year-old female presents to the emergency department with chief complaint of abdominal pain. She states that this has been going on for 2-3 months but worsened over the past 7 days. She states the pain has been continuing to worsen. She reports that she has not had any recent imaging of her abdomen. Today she reports that she started to do her colonoscopy prep and had an episode of projectile vomiting. Her last bowel movement was yesterday. She has not had a bowel movement following her prep today. She states that she feels she vomited all of the prep up. - Related Data Home Medications Medication Instructions Recorded Confirmed Montelukast [Singulair] 10 mg PO DAILY 01/05/14 02/01/23 Albuterol Inhaler [Ventolin Hfa 2 puff INHALATION DIRECTED PRN 04/25/16 02/01/23 Inhaler] Ergocalciferol [Vitamin D2] 50,000 unit PO WE 04/25/16 02/01/23 Fludrocortisone [Florinef] 0.1 mg PO QAM 04/25/16 02/01/23 Albuterol Nebulized [Ventolin 2.5 mg INHALATION DAILY PRN 11/04/17 02/01/23 Nebulized] Sucralfate [Carafate] 1 gm PO QID PRN 11/04/17 02/01/23 Alendronate Sodium [Fosamax] 70 mg PO FR 06/25/19 02/01/23 Potassium Chloride ER [K-Dur 20] 10 meq PO DAILY 10/18/21 02/01/23 Acetaminophen [Tylenol Extra 500 - 1,000 mg PO Q4-6H PRN 08/31/22 02/01/23 Strength] Cetirizine HCl 10 mg PO DAILY 08/31/22 02/01/23 Omeprazole [PriLOSEC] 20 mg PO BID 08/31/22 02/01/23 Dicyclomine [Bentyl] 10 mg PO TID 02/01/23 02/01/23 Nystatin [Nystatin Oral Susp] 1 unit PO QID 02/01/23 02/01/23 Posaconazole [Noxafil] 300 mg PO DAILY 02/01/23 02/01/23 Spironolactone [Aldactone] 25 mg PO BID 02/01/23 02/01/23 Allergies Allergy/AdvReac Type Severity Reaction Status Date / Time voriconazole Allergy Unknown HAIR LOSS, Verified 02/01/23 14:51 BLISTERS, RASHES, NAILS FELL OFF. adhesive Allergy blisters Verified 02/01/23 14:51 from cloth tape pneumococcal 23-valent Allergy chest pain Verified 02/01/23 14:51 polysacchari and dyspnea [From Pneumovax 23] meperidine [From Demerol] AdvReac Severe "stopped Verified 02/01/23 14:51 breathing" cloth tape Allergy blisters Uncoded 02/01/23 14:51 Review of Systems ROS Statement: Those systems with pertinent positive or pertinent negative responses have been documented in the HPI. ROS Other: All systems not noted in ROS Statement are negative. 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 patient has home oxygen as needed. History of Any Multi-Drug Resistant Organisms: None Reported Past Surgical History: Adenoidectomy, Cholecystectomy, Hysterectomy, Tonsillectomy, Tubal Ligation Additional Past Surgical History / Comment(s): COLONOSCOPY/EGD,several bronchoscopy, lung biopsy, LASIK eye surgery, right bunionectomy & hammertoe surg. in October Past Anesthesia/Blood Transfusion Reactions: Postoperative Nausea & Vomiting (PONV) Additional Past Anesthesia/Blood Transfusion Reaction / Comment(s): severe post op vomiting get patch behind ear Past Psychological History: No Psychological Hx Reported Smoking Status: Never smoker Past Alcohol Use History: None Reported Past Drug Use History: None Reported - Past Family History Brother(s) Family Medical History: Cancer Additional Family Medical History / Comment(s): blood General Exam Limitations: no limitations General appearance: alert, in no apparent distress Head exam: Present: atraumatic, normocephalic, normal inspection Eye exam: Present: normal appearance ENT exam: Present: normal exam, mucous membranes moist Neck exam: Present: normal inspection. Absent: tenderness, meningismus, lymphadenopathy Respiratory exam: Present: normal lung sounds bilaterally. Absent: respiratory distress, wheezes, rales, rhonchi, stridor Cardiovascular Exam: Present: regular rate, normal rhythm, normal heart sounds. Absent: systolic murmur, diastolic murmur, rubs, gallop, clicks GI/Abdominal exam: Present: soft, tenderness (diffuse), normal bowel sounds. Absent: distended, guarding, rebound, rigid Extremities exam: Present: normal inspection, full ROM, normal capillary refill. Absent: tenderness, pedal edema, joint swelling, calf tenderness Back exam: Present: normal inspection Neurological exam: Present: alert, oriented X3 Psychiatric exam: Present: normal affect, normal mood Skin exam: Present: warm, dry, intact, normal color. Absent: rash Course Vital Signs 02/07/23 02/07/23 02/07/23 20:30 20:50 21:22 Temperature 98.0 F Pulse Rate 76 74 69 Respiratory 20 20 19 Rate Blood Pressure 110/69 110/76 105/68 O2 Sat by Pulse 97 93 L 96 Oximetry 02/07/23 02/07/23 22:17 23:15 Temperature 98.3 F 98.2 F Pulse Rate 67 65 Respiratory 18 17 Rate Blood Pressure 115/90 122/83 O2 Sat by Pulse 91 L 95 Oximetry Medical Decision Making - Medical Decision Making Was pt. sent in by a medical professional or institution (, PA, AFFILIATE MANAGER, urgent care, hospital, or residential...) When possible be specific @ -No Did you speak to anyone other than the patient for history (EMS, parent, family, police, friend...)? What history was obtained from this source @ -No Did you review nursing and triage notes (agree or disagree)? Why? @ -I reviewed and agree with nursing and triage notes Were old charts reviewed (outside hosp., previous admission, EMS record, old EKG, old radiological studies, urgent care reports/EKG's, residential records)? Report findings @ -No old charts were reviewed Differential Diagnosis (chest pain, altered mental status, abdominal pain women, abdominal pain men, vaginal bleeding, weakness, fever, dyspnea, syncope, head ache, dizziness, GI bleed, back pain, seizure, CVA, palpatations, mental health, musculoskeletal)? @ -Differential Abdominal Pain Women: Appendicitis, Cholecystitis, diverticulosis, ischemic bowel, pancreatitis, hepatitis, UTI, gastroenteritis, AAA, incarcerated hernia, bowel obstruction, constipation, inflammatory bowel, hepatitis, peptic ulcer disease, splenic infarction, perforated viscus, vulvitis, ovarian torsion, PID, kidney stone, placenta abruption, this is not meant to be an all-inclusive list] EKG interpreted by me (3pts min.). @ -None X-rays interpreted by me (1pt min.). @ -None done CT interpreted by me (1pt min.). @ -CT abdomen and pelvis showed no evidence of bowel obstruction U/S interpreted by me (1pt. min.). @ -None done What testing was considered but not performed or refused? (CT, X-rays, U/S, labs)? Why? @ -None What meds were considered but not given or refused? Why? @ -None Did you discuss the management of the patient with other professionals (professionals i.e. , PA, AFFILIATE MANAGER, lab, RT, psych nurse, social service director, ocean freight forwarder, teacher, community service officer, rn case mgr)? Give summary @ -No Was smoking cessation discussed for >3mins.? @ -No Was critical care preformed (if so, how long)? @ -No Were there social determinants of health that impacted care today? How? (Homelessness, low income, unemployed, alcoholism, drug addiction, transportation, low edu. Level, literacy, decrease access to med. care, [place] [facility], rehab)? @ -No Was there de-escalation of care discussed even if they declined (Discuss DNR or withdrawal of care, Hospice)? DNR status @ -No What co-morbidities impacted this encounter? (DM, HTN, Smoking, COPD, CAD, Cancer, CVA, ARF, Chemo, Hep., AIDS, mental health diagnosis, sleep apnea, morbid obesity)? @ -None Was patient admitted / discharged? Hospital course, mention meds given and route, prescriptions, significant lab abnormalities, going to OR and other p ertinent info. @ -Discharged. Patient presented to emergency department with chief complaint of abdominal pain which has been going on for 2-3 months. She states that this is worsened over the past 7 days. She has not had any imaging of her abdomen. Was that she is scheduled for colonoscopy tomorrow morning and took her prep earlier today and vomited following this. She reports that she has not had a bowel movement since this. CBC showed WBC 15.6, hemoglobin 15.5; sodium 132, potassium 4.5; lactic acid 1.5; UA showed cloudy urine, 1+ protein, 1+ ketones likely due to dehydration. Patient provided some hydration with 1 L of normal saline. CT abd pelvis showed fluid distended small and large bowel favoring enteritis, diarrheal disease over partial small bowel obstruction.. This is likely from her colonoscopy prep that she took earlier today. Patient advised to follow-up with her colonoscopy tomorrow as scheduled. Patient stable at time of discharge. Case discussed my attending, Dr. Luong. Undiagnosed new problem with uncertain prognosis? @ -No Drug Therapy requiring intensive monitoring for toxicity (Heparin, Nitro, Insulin, Cardizem)? @ -No Were any procedures done? @ -No Diagnosis/symptom? @ -abdominal pain Acute, or Chronic, or Acute on Chronic? @ -acute Uncomplicated (without systemic symptoms) or Complicated (systemic symptoms)? @ -uncomplicated Side effects of treatment? @ -No Exacerbation, Progression, or Severe Exacerbation? @ -No Poses a threat to life or bodily function? How? (Chest pain, USA, HI, pneumonia, PE, COPD, DKA, ARF, appy, cholecystitis, CVA, Diverticulitis, Homicidal, Suicidal, threat to staff... and all critical care pts) @ -No - Lab Data Result diagrams: 02/07/23 21:46 02/07/23 22:12 Lab Results 02/07/23 02/07/23 02/07/23 Range/Units 21:46 21:46 21:46 WBC 15.6 H (3.8-10.6) k/uL RBC 5.49 H (3.80-5.40) m/uL Hgb 15.5 (11.4-16.0) gm/dL Hct 44.6 (34.0-46.0) % MCV 81.2 (80.0-100.0) fL MCH 28.2 (25.0-35.0) pg MCHC 34.7 (31.0-37.0) g/dL RDW 16.8 H (11.5-15.5) % Plt Count 290 (150-450) k/uL MPV 9.5 Neutrophils % 81 % Lymphocytes % 12 % Monocytes % 6 % Eosinophils % 1 % Basophils % 0 % Neutrophils # 12.6 H (1.3-7.7) k/uL Lymphocytes # 1.9 (1.0-4.8) k/uL Monocytes # 0.9 (0-1.0) k/uL Eosinophils # 0.1 (0-0.7) k/uL Basophils # 0.0 (0-0.2) k/uL Anisocytosis Slight Sodium (137-145) mmol/L Potassium (3.5-5.1) mmol/L Chloride (98-107) mmol/L Carbon Dioxide (22-30) mmol/L Anion Gap mmol/L BUN (7-17) mg/dL Creatinine (0.52-1.04) mg/dL Est GFR (CKD-EPI)AfAm (>60 ml/min/1.73 sqM) Est GFR (CKD-EPI)NonAf (>60 ml/min/1.73 sqM) Glucose (74-99) mg/dL Plasma Lactic Acid Elio 1.5 (0.7-2.0) mmol/L Calcium (8.4-10.2) mg/dL Total Bilirubin (0.2-1.3) mg/dL AST (14-36) U/L ALT (4-34) U/L Alkaline Phosphatase (38-126) U/L Total Protein (6.3-8.2) g/dL Albumin (3.5-5.0) g/dL Amylase (30-110) U/L Lipase (23-300) U/L Urine Color Dark Brown Urine Appearance Cloudy H (Clear) Urine pH 5.5 (5.0-8.0) Ur Specific [place] 1.026 (1.001-1.035) Urine Protein 1+ H (Negative) Urine Glucose (UA) Negative (Negative) Urine Ketones 1+ H (Negative) Urine Blood Small H (Negative) Urine Nitrite Negative (Negative) Urine Bilirubin 1+ H (Negative) Urine Urobilinogen 2.0 (<2.0) mg/dL Ur Leukocyte Esterase Moderate H (Negative) Urine RBC 3 (0-5) /hpf Urine WBC 11 H (0-5) /hpf Ur Squamous Epith Cells 4 (0-4) /hpf Hyaline Casts 35 H (0-2) /lpf Urine Mucus Many H (None) /hpf 02/07/23 Range/Units 22:12 WBC (3.8-10.6) k/uL RBC (3.80-5.40) m/uL Hgb (11.4-16.0) gm/dL Hct (34.0-46.0) % MCV (80.0-100.0) fL MCH (25.0-35.0) pg MCHC (31.0-37.0) g/dL RDW (11.5-15.5) % Plt Count (150-450) k/uL MPV Neutrophils % % Lymphocytes % % Monocytes % % Eosinophils % % Basophils % % Neutrophils # (1.3-7.7) k/uL Lymphocytes # (1.0-4.8) k/uL Monocytes # (0-1.0) k/uL Eosinophils # (0-0.7) k/uL Basophils # (0-0.2) k/uL Anisocytosis Sodium 132 L (137-145) mmol/L Potassium 4.5 (3.5-5.1) mmol/L Chloride 97 L (98-107) mmol/L Carbon Dioxide 22 (22-30) mmol/L Anion Gap 13 mmol/L BUN 15 (7-17) mg/dL Creatinine 1.22 H (0.52-1.04) mg/dL Est GFR (CKD-EPI)AfAm 56 (>60 ml/min/1.73 sqM) Est GFR (CKD-EPI)NonAf 48 (>60 ml/min/1.73 sqM) Glucose 112 H (74-99) mg/dL Plasma Lactic Acid Elio (0.7-2.0) mmol/L Calcium 9.2 (8.4-10.2) mg/dL Total Bilirubin 2.1 H (0.2-1.3) mg/dL AST 23 (14-36) U/L ALT 15 (4-34) U/L Alkaline Phosphatase 106 (38-126) U/L Total Protein 7.8 (6.3-8.2) g/dL Albumin 4.0 (3.5-5.0) g/dL Amylase 41 (30-110) U/L Lipase 43 (23-300) U/L Urine Color Urine Appearance (Clear) Urine pH (5.0-8.0) Ur Specific [place] (1.001-1.035) Urine Protein (Negative) Urine Glucose (UA) (Negative) Urine Ketones (Negative) Urine Blood (Negative) Urine Nitrite (Negative) Urine Bilirubin (Negative) Urine Urobilinogen (<2.0) mg/dL Ur Leukocyte Esterase (Negative) Urine RBC (0-5) /hpf Urine WBC (0-5) /hpf Ur Squamous Epith Cells (0-4) /hpf Hyaline Casts (0-2) /lpf Urine Mucus (None) /hpf Disposition Clinical Impression: Abdominal pain Disposition: HOME SELF-CARE Condition: Stable Instructions (If sedation given, give patient instructions): Abdominal Pain (ED) Additional Instructions: Please follow up as scheduled for your colonoscopy tomorrow. Return to the emergency department for new or worsening symptoms. Is patient prescribed a controlled substance at d/c from ED?: No Referrals: Nicole Guadarrama DO [Primary Care Provider] - 1-2 days Time of Disposition: 23:45
[2023-02-07 21:56] LABS: Anisocytosis Slight; Basophils % (A) 0 %; Eosinophils # (A) 0.1 k/uL (0-0.7); Eosinophils % (A) 1 %; HCT 44.6 % (34.0-46.0); HGB 15.5 gm/dL (11.4-16.0); Lymphocytes # (A) 1.9 k/uL (1.0-4.8); Lymphocytes % (A) 12 %; MCH 28.2 pg (25.0-35.0); MCHC 34.7 g/dL (31.0-37.0); MCV 81.2 fL (80.0-100.0); Mean Platelet Volume 9.5; Monocytes # (A) 0.9 k/uL (0-1.0); Monocytes % (A) 6 %; Neutrophils # (A) 12.6 k/uL (1.3-7.7); Neutrophils % (A) 81 %; Platelet Count 290 k/uL (150-450); RBC 5.49 m/uL (3.80-5.40); RDW 16.8 % (11.5-15.5); WBC 15.6 k/uL (3.8-10.6)
[2023-02-07 22:20] LABS: Appearance,Urine Cloudy (Clear); Bilirubin,Urine 1+ (Negative); Blood,Urine Small (Negative); Color,Urine Dark Brown; Glucose,Urine (UA) Negative (Negative); Hyaline Casts,Urine 35 /lpf (0-2); Ketones,Urine 1+ (Negative); Leukocyte Esterase,Urine Moderate (Negative); Mucus,Urine Many /hpf; Nitrite,Urine Negative (Negative); PH, Urine 5.5 (5.0-8.0); Protein,Urine 1+ (Negative); RBC,Urine 3 /hpf (0-5); Specific Gravity,Urine 1.026 (1.001-1.035); Squamous Epithelial Cell,Urine 4 /hpf (0-4); WBC,Urine 11 /hpf (0-5)
[2023-02-07 22:31] LABS: ALT 15 U/L (4-34); AST 23 U/L (14-36); African American GFR (CKD) 56 (>60 ml/min/1.73 sqM); Alkaline Phosphatase 106 U/L (38-126); Amylase 41 U/L (30-110); Anion Gap 13 mmol/L; Blood Urea Nitrogen 15 mg/dL (7-17); Calcium 9.2 mg/dL (8.4-10.2); Carbon Dioxide 22 mmol/L (22-30); Chloride 97 mmol/L (98-107); Glucose 112 mg/dL (74-99); Lipase 43 U/L (23-300); Non-African American GFR(CKD) 48 (>60 ml/min/1.73 sqM); Potassium 4.5 mmol/L (3.5-5.1); Sodium 132 mmol/L (137-145); Total Bilirubin 2.1 mg/dL (0.2-1.3); Total Protein 7.8 g/dL (6.3-8.2)
[2023-02-07] MEDS ORDERED: SODIUM CHLORIDE 0.9% 1,000 ML IV ONE (22:35)
[2023-02-07 23:15] VITALS: RESP 17; TEMP 98.2
--- NOTE | 2023-02-07 23:21 | CT ---
EXAM: CT Abdomen and Pelvis With Intravenous Contrast CLINICAL HISTORY: ITS.REASON CT Reason: abd pain TECHNIQUE: Axial computed tomography images of the abdomen and pelvis with intravenous contrast. CTDI is 24 mGy and DLP is 1126.9 mGy-cm. This CT exam was performed using one or more of the following dose reduction techniques: automated exposure control, adjustment of the mA and/or kV according to patient size, and/or use of iterative reconstruction technique. COMPARISON: No relevant prior studies available. FINDINGS: Lung bases: Unremarkable. No mass. No consolidation. ABDOMEN: Liver: Unremarkable. No mass. Gallbladder and bile ducts: Cholecystectomy. Mildly enlarged common bile duct, likely reservoir effect. Pancreas: Unremarkable. No mass. No ductal dilation. Spleen: Unremarkable. No splenomegaly. Adrenals: Unremarkable. No mass. Kidneys and ureters: Symmetric renal enhancement. No hydronephrosis. Simple left kidney cyst measuring 3 cm; no further follow-up required. Stomach and bowel: Fluid distended small and large bowel. No discrete transition point to suggest small bowel obstruction. No mucosal thickening. PELVIS: Appendix: Visualized segment of the appendix appears normal. Bladder: Decompressed urinary bladder. Reproductive: Hysterectomy. ABDOMEN and PELVIS: Intraperitoneal space: Unremarkable. No free fluid or free air. Bones/joints: No acute fracture or dislocation. Soft tissues: Unremarkable. Vasculature: Unremarkable. No abdominal aortic aneurysm. Lymph nodes: Unremarkable. No enlarged lymph nodes. IMPRESSION: Fluid distended small and large bowel, favoring enteritis/diarrheal disease over partial small bowel obstruction.
[2023-02-07] MEDS ORDERED: GLYCERIN ADULT SUPPOSITORY 1 EACH RECTAL STA (23:40)
[2023-02-07] MEDS ORDERED: ONDANSETRON 4 MG ODT STARTER PACK 2 TAB BTL PO STA (23:44)
[2023-02-08 00:18] VITALS: BP 115/68; PULSE 67
== END 2023-02-08 00:23 | disposition home or self-care (01) ==
LOC: EC 20:18
DX: K56.600 Partial intestinal obstruction, unspecified as to cause (principal); J44.9 Chronic obstructive pulmonary disease, unspecified; K21.9 Gastro-esophageal reflux disease without esophagitis; M19.90 Unspecified osteoarthritis, unspecified site; Z79.899 Other long term (current) drug therapy; Z88.8 Allergy status to other drugs, medicaments and biological substances
CPT/HCPCS: 36415; 80053; 82150; 83605; 83690; 85025; 81001; 74177; 99284; 96360; 96361; Q9967

== ENCOUNTER 2023-02-08 09:25 | Day surgery (SDC) | payer MEDICARE ==
[2023-02-01 15:00] VITALS: BMI 29.7
[~2023-02-08 09:25] MED LIST changes: -DEXAMETHASONE SOD PHOSPHATE 4 MG/ML 1 ML VIAL IV ONE; -HYDROmorphone 0.5 MG/0.5 ML SYRINGE IVP PRN; +LIDOCAINE 1% (10MG/ML) FOR IV START INTRADERMA PRN; -MIDAZOLAM 2 MG/2 ML VIAL IV PRN; -ONDANSETRON 4 MG/2 ML VIAL IVP ONE; +ONDANSETRON 4 MG/2 ML VIAL IVP PRN; -Pre Op ABX Message 1 EACH MISC MISCELLANE ONE; -SCOPOLAMINE 1 MG/72 HR PATCH TRANSDERM ONE
[2023-02-08 09:46] VITALS: RESP 18; TEMP 97.2
[2023-02-08] MEDS ORDERED: ONDANSETRON 4 MG/2 ML VIAL IVP ONE (10:08)
[2023-02-08] MEDS ORDERED: PROPOFOL 10 MG/ML 20 ML VIAL IV ONE (10:35)
[2023-02-08] MEDS ORDERED: LIDOCAINE 2% INJ 20 MG/ML (2 ML VIAL) ONE (10:35)
--- NOTE | 2023-02-08 11:09 | P.PCN ---
Date of Procedure: 02/08/23 Procedure(s) Performed: Brief history: Patient is a pleasant 62-year-old white female scheduled for an elective upper endoscopy as well as colonoscopy as a part of evaluation of epigastric pain, GERD, and change in bowel habits for the last several months duration Procedure performed: Esophagogastroduodenoscopy with biopsy Colonoscopy with biopsy Preoperative diagnosis: Epigastric pain/GERD Change in bowel habits Anesthesia: MAC Procedure: After informed consent was obtained from the patient was brought into the endoscopy unit and IV sedation was administered by anesthesia under continuous monitoring. Initially upper endoscopy was done. The Olympus GF 160 video endoscope was inserted inserted into the mouth and esophagus intubated without any difficulty and was gradually advanced into the stomach and duodenum and carefully examined. The bulb and second part of the duodenum appeared normal. Biopsies were done from the duodenum to rule out celiac disease. The scope was then withdrawn into the stomach adequately insufflated with air and upon careful examination the antrum had mild gastritis and biopsies were done from this area. Mucosa of the body, cardia and fundus appeared normal. The scope was then withdrawn into the esophagus. Small hiatal hernia noted. The GE junction was located at 40 cm to the incisors. It appeared regular with 2 superficial erosions consistent with LA grade B reflux esophagitis. Rest of the esophagus appeared normal. Patient tolerated the procedure well. At this time the patient continued to remain sedation. Initial digital rectal examination was normal. Olympus CF 160 video colonoscope was then inserted into the rectum and gradually advanced to the cecum without any difficulty. Careful examination was performed as the scope was gradually being withdrawn. The prep was poor and several areas of the colon. Thorough irrigation was performed. The cecum, ascending colon, transverse colon, descending colon, sigmoid colon and rectum appeared normal. Scattered sigmoid diverticula cyst. Random biopsies were done from the descending colon and sigmoid colons to evaluate for microscopic/collagenous colitis. Retroflexion was performed in the rectum and no lesions were noted. Patient tolerated the procedure well. Impression: 1. Upper endoscopy revealed small hiatal hernia, white female grade B reflux esophagitis and mild antral gastritis 2. Colonoscopy was within normal limits with no evidence of colorectal neoplasia except for scattered sigmoid diverticulosis Recommendations: Findings of this examination were discussed with the patient as well as her family. She was advised to follow with the biopsy results. She'll be seen in office in 2 weeks.
[2023-02-08 11:30] VITALS: BP 104/71; PULSE 67
== END 2023-02-08 12:44 | disposition home or self-care (01) ==
LOC: ORWHC2ENDO 09:25
PROVIDERS: ATTEND Internal Medicine Gastroenterology
DX: K52.9 Noninfective gastroenteritis and colitis, unspecified (principal); K21.00 Gastro-esophageal reflux disease with esophagitis, without bleeding; K57.30 Diverticulosis of large intestine without perforation or abscess without bleeding; J35.8 Other chronic diseases of tonsils and adenoids; K91.86 Retained cholelithiasis following cholecystectomy; K21.9 Gastro-esophageal reflux disease without esophagitis; Z79.899 Other long term (current) drug therapy; Z79.83 Long term (current) use of bisphosphonates; Z79.51 Long term (current) use of inhaled steroids
CPT/HCPCS: 88305; 45380; 43239; J2405; J2704; J2001

== ENCOUNTER → 2023-03-27 | Outpatient (CLI) | payer MEDICARE ==
--- NOTE | 2023-03-27 15:30 | XR ---
EXAMINATION TYPE: XR chest 2V DATE OF EXAM: 03/27/2023 COMPARISON: 06/25/2019 TECHNIQUE: PA and lateral views submitted. HISTORY: Pain FINDINGS: The lungs are clear and there is no pneumothorax, pleural effusion, or focal pneumonia. Heart size normal and no overt failure. Osseous structures demonstrate AC joint arthropathy. Hypertrophic degene rative change of the spine. Surgical clips in the abdomen. Hyperinflation suggests COPD there is a linear density in the right midlung likely related to atelect asis or scar.. Biapical pleural thickening. Nodule in the left perihilum. Measures approximately 1.4 cm . IMPRESSION: 1. Bilateral upper lobe pulmonary nodularity. Underlying COPD and bronchiectasis. Correlate with CT s can as clinically warranted..
== END | disposition home or self-care (01) ==
LOC: RADXRMAIN 14:47
PROVIDERS: ATTEND Internal Medicine Infectious Disease
DX: J44.9 Chronic obstructive pulmonary disease, unspecified (principal); R91.8 Other nonspecific abnormal finding of lung field
CPT/HCPCS: 71046

== ENCOUNTER → 2023-05-15 | Outpatient (CLI) | payer MEDICARE ==
[2023-05-15 13:12] VITALS: BP 144/85; PULSE 70; RESP 15; TEMP 98.6
--- NOTE | 2023-05-16 14:47 | P.PAINPG ---
PQRS Measure Charge Sheet Comment: HISTORY OF PRESENT ILLNESS: A 62 yr old female as a referral from Dr Robertson presents today w severe and chronic mid back pain x 5 yrs secondary to DDD, spondylosis and facet arthropathy without myelopathy for evaluation. Pt states pain level is provoked at 10 /10 in intensity, constant, localized in the mid back, predominantly axial, stabbing in character without shooting pain. Pain is provoked by over activity. Pain is alleviated by PT x 3 wks which she is currently in, heat, medications (Robaxin #90), topical Biofreeze, repositioning and rest. Oswestry axial pain score at 16. PMH: OA, Asthma, COPD, GERD, HH, Vitamin D Deficiency PSH: Colonoscopy/ EGD (2022), Bronchoscopies, LASIK, R Bunionectomy, Hammertoe Surgery (2022), Adenoidectomy, Cholecystectomy, Hysterectomy, Tonsillectomy, Tubal Ligation SH: Negative x3 FH: Bro- Blood CA All: See list Meds: See list REVIEW OF ORGAN SYSTEMS: CONSTITUTIONAL: No fevers or chills. No recent weight loss. NEUROLOGICAL: + numbness and tingling along the distal extremities. No seizure disorders or headaches. MUSCULOSKELETAL: + pain PSYCHIATRIC: Denies current depression or suicidal thoughts. Physical Examinations : Constitutional : Cooperative , not in acute distress . Neurologic : Cranial nerve II to XII intact. No focal neurological deficits. Psychiatric : alert & oriented x 3. Matching mood & appropriate affect. Judgment & insight intact. Musculoskeletal : Cervical Spine Motor strength in the deltoid and biceps: Normal right side. Normal Left side Motor strength biceps and the wrist extensors: Normal right side . Normal left side Motor strength in the triceps muscle: N ormal right side. Normal left side Deep tendon reflexes: Normal at the biceps. Normal at Brachioradialis. Normal at triceps Vertebral body tenderness to deep palpation over Cervical facet loading test: positive bilaterally Spurling test: positive bilaterally Neck distraction test: positive bilaterally Faisal sign: positive bilaterally Thoracic spine Taut bands w twitch response over BL T3-T10 Lumbar spine Motor strength lower extremities ,thigh and legs 5/5 Right side , 5/5 Left side Deep tendon reflexes : Normal Knee J erk. Normal Ankle Jerk Vertebral body tenderness over Larry Test positive Lumbar facet Loading Test: positive Right / positive Left Range of motion of the lumbar spine Flexion 30 degrees, extension 10 degrees Straight Leg Raise test: Left/ Right positive at degree Guanaco test: positive right / positive left. Severe tenderness over the Sacroiliac joint on the Right / Left sides Gaenslen test: positive bilaterally Seated flexion test: positive bilaterally. Sacral spine : Severe tenderness over the Sacroiliac joint: right side / left side Range of motion: Flexion of the lumbar spine <60 degrees Range of motion: Extension of the lumbar spine <20 degrees Gaenslen's Test positive Guanaco test: positive right side / left side Thigh Thrust Test Sacral Thrust Test Imaging: MRI noncontrast of the cervical spine from 04/07/23 reviewed MRI noncontrast of the thoracic spine from 04/07/23 reviewed Assessment/ Plan : Thoracic DDD Recommendation of BL TPIs T3-T10. May need a series of injections for optimal pain relief. Risks, benefits of procedure discussed and patient verbalized u nderstanding. Admits to anti- coagulant use or medical history of diabetes. Protocol for discontinuation/ continuation of medications alber procedure discussed. Minimal anesthesia provided, if clinically indicated, consisting of Versed and Fentanyl. All questions answered. I have spent greater than 30 minutes on patient care today. Dr Fu was available by phone for the evaluation of this patient. The time was used to review the medical records including relevant urine studies and Prescription history (MAPs), review of the available imaging, evaluation and examination of the patient, coordination of care with the medical staff and if applicable referring physicians, as well as creation of the medical record - Pain Location Back Non-Pharmacological Interventions: Heat, Inactivity, Position/Reposition Pharmacological Interventions: PRN Medication PQRS Narrative: Smoking Status Never smoker Home Medications: Ambulatory Orders Montelukast [Singulair] 10 mg PO DAILY 01/05/14 Albuterol Inhaler [Ventolin Hfa Inhaler] 2 puff INHALATION DIRECTED PRN 04/25/16 Ergocalciferol [Vitamin D2] 50,000 unit PO WE 04/25/16 Fludrocortisone [Florinef] 0.1 mg PO QAM 04/25/16 Albuterol Nebulized [Ventolin Nebulized] 2.5 mg INHALATION DAILY PRN 11/04/17 Sucralfate [Carafate] 1 gm PO QID PRN 11/04/17 Alendronate Sodium [Fosamax] 70 mg PO FR 06/25/19 Potassium Chloride ER [K-Dur 20] 10 meq PO DAILY 10/18/21 Acetaminophen [Tylenol Extra Strength] 500 - 1,000 mg PO Q4-6H PRN 08/31/22 Cetirizine HCl 10 mg PO DAILY 08/31/22 Omeprazole [PriLOSEC] 20 mg PO BID 08/31/22 Dicyclomine [Bentyl] 10 mg PO TID 02/01/23 Nystatin [Nystatin Oral Susp] 1 unit PO QID 02/01/23 Posaconazole [Noxafil] 300 mg PO DAILY 02/01/23 Spironolactone [Aldactone] 25 mg PO BID 02/01/23 Controlled Substance Measures - Controlled Substance Measures Is patient prescribed a controlled substance at discharge?: No
== END ==
LOC: PNWHC3 09:26
PROVIDERS: ATTEND Specialist
DX: M51.34 Other intervertebral disc degeneration, thoracic region (principal); G89.29 Other chronic pain; M19.90 Unspecified osteoarthritis, unspecified site; J44.89 Other specified chronic obstructive pulmonary disease; K21.9 Gastro-esophageal reflux disease without esophagitis; K44.9 Diaphragmatic hernia without obstruction or gangrene; Z79.899 Other long term (current) drug therapy; Z91.048 Other nonmedicinal substance allergy status; Z88.8 Allergy status to other drugs, medicaments and biological substances
CPT/HCPCS: 99211

== ENCOUNTER 2023-08-30 12:00 | Day surgery (SDC) | payer MEDICARE ==
[~2023-08-30 12:00] MED LIST changes: -LIDOCAINE 1% (10MG/ML) FOR IV START INTRADERMA PRN; -ONDANSETRON 4 MG/2 ML VIAL IVP PRN
[2023-08-30 12:37] VITALS: RESP 16; TEMP 97.8
[2023-08-30] MEDS: LACTATED RINGERS 1,000 ML IV SCH (12:53)
[2023-08-30 12:58] LABS: Glucose,Whole Blood 96 mg/dL (70-110)
[2023-08-30] MEDS: HYDROCORTISONE SUCCINATE 100 MG/2 ML VIAL IVP ONE (13:03)
[2023-08-30] MEDS: ATROPINE SULFATE 0.4 MG/ML 1 ML VIAL IM ONE (13:04)
[2023-08-30] MEDS ORDERED: MIDAZOLAM 2 MG/2 ML VIAL ONE (13:36)
[2023-08-30] MEDS ORDERED: PROPOFOL 10 MG/ML 20 ML VIAL IV ONE (13:36)
[2023-08-30] MEDS ORDERED: KETAMINE HCL IN 0.9 % NACL 50 MG/5 ML SYRINGE ONE (13:36)
[2023-08-30] MEDS ORDERED: fentaNYL (PF) 50 MCG/ML 2 ML AMP ONE (13:36)
[2023-08-30] MEDS ORDERED: LIDOCAINE 1% INJ 10MG/ML (20 ML MDV) ONE (13:36)
[2023-08-30] MEDS: LIDOCAINE 2% GLYDO JELLY 6 ML APPL TOPICAL ONE ×2 (13:47→13:51)
[2023-08-30] MEDS: LIDOCAINE 2% INJ 20 MG/ML INTRATRACH ONE ×3 (13:49→13:51)
[2023-08-30 14:42] VITALS: BP 111/80; PULSE 95
--- NOTE | 2023-08-30 20:30 | OP ---
OPERATIVE REPORT DATE OF SERVICE : PROCEDURES PERFORMED: Bronchoscopy airway examination; therapeutic lavage; BAL, right middle lobe; brushes, right middle lobe; endobronchial biopsies, left lower lobe. PREOPERATIVE DIAGNOSIS: Recurrent Mycobacterium avium complex infection, fungal infection, chronic bronchitis. POSTOPERATIVE DIAGNOSES: Recurrent Mycobacterium avium complex infection, fungal infection, chronic bronchitis. There was informed consent and universal timeout. The patient's procedure took place in [facility] room #1. ANESTHESIA: Provided general anesthesia. [employer]ING TEACHER: Dr. Freya Sheikh. There was informed consent and universal timeout. DESCRIPTION OF PROCEDURE: After the patient was adequately sedated and being fully monitored, the bronchoscope was inserted through the right nostril. It passed through the right nasopharynx into the oropharynx. The hypopharynx was identified. Anterior commissure, true cords, false cords, arytenoids, piriform sinuses, right and left, vallecula, and epiglottis all appeared relatively normal. After topicalization, the bronchoscope was pushed through the glottic opening and into the trachea. There were some secretions noted within the trachea. They were suctioned. Tracheal jenise was sharp. The right upper lobe and its 3 segments, right middle lobe and its 2 segments, right lower lobe and its 5 segments, lingula and its 2 segments, left upper lobe proper and its 2 segments, and left lower lobe and its 4 segments, all were appeared relatively normal, although there was [id number] bronchitis. There was some mucosal friability. There were erythema and hyperemia of the airways. There were secretions noted throughout. They were suctioned with the aid of saline lavage. There was no dominant mass or tumor. Next, under direct visualization, we did brushes to the right middle lobe. The mucosa was friable and bled a bit. Next, we did a BAL in the right middle lobe. More than 30 mL of fluid was recovered. Finally, under direct visualization, we did endobronchial biopsies to the left lower lobe. The patient tolerated the procedure well. There was minimal bleeding. We made sure that there was good hemostasis before the bronchoscope was withdrawn. The patient will be recovered. There was no immediate complication. The patient tolerated the procedure well. This specimen was sent to the laboratory for analysis. MMODL / IJN: [id number] /
[2023-08-31 05:46] LABS: Appearance,BF Bloody (Clear); RBC, Body Fluid 33150 /UL (0-2000)
[2023-09-03 11:09] LABS: Nucleated Cells, Body Fluid 1500 /UL
== END 2023-08-30 15:15 | disposition home or self-care (01) ==
LOC: ORWHC2ENDO 12:00
PROVIDERS: ATTEND Internal Medicine Critical Care Medicine
DX: J42 Unspecified chronic bronchitis (principal); J47.9 Bronchiectasis, uncomplicated; Z79.899 Other long term (current) drug therapy
CPT/HCPCS: 88104; 88108; 88305; 89050; 87070; 87205; 87116; 87102; 87206; 31625; 31623; 31624; J2001 ×2; J2250; J0461; J1720; J3010; J2704; 87496; 87498; 87502; 87529; 87634; 87635; 87798

== ENCOUNTER → 2023-09-24 | Outpatient (CLI) | payer MEDICARE ==
[2023-09-24 11:37] LABS: Anisocytosis Slight; Basophils % (A) 0 %; Eosinophils # (A) 0.1 k/uL (0-0.7); Eosinophils % (A) 0 %; HCT 53.4 % (34.0-46.0); HGB 16.5 gm/dL (11.4-16.0); Hypochromasia Slight; Lymphocytes # (A) 0.9 k/uL (1.0-4.8); Lymphocytes % (A) 4 %; MCH 26.7 pg (25.0-35.0); MCHC 30.9 g/dL (31.0-37.0); MCV 86.6 fL (80.0-100.0); Monocytes # (A) 0.5 k/uL (0-1.0); Monocytes % (A) 2 %; Neutrophils # (A) 23.9 k/uL (1.3-7.7); Neutrophils % (A) 94 %; Platelet Count 366 k/uL (150-450); RBC 6.16 m/uL (3.80-5.40); WBC 25.6 k/uL (3.8-10.6)
[2023-09-24 11:56] LABS: ALT 20 U/L (4-34); AST 21 U/L (14-36); African American GFR (CKD) 89 (>60 ml/min/1.73 sqM); Albumin 4.2 g/dL (3.5-5.0); Albumin/Globulin Ratio 1.1; Alkaline Phosphatase 115 U/L (38-126); Anion Gap 10 mmol/L; Blood Urea Nitrogen 22 mg/dL (7-17); Calcium 10.1 mg/dL (8.4-10.2); Carbon Dioxide 26 mmol/L (22-30); Chloride 100 mmol/L (98-107); Globulin 3.8 g/dL; Glucose 127 mg/dL (74-99); Non-African American GFR(CKD) 77 (>60 ml/min/1.73 sqM); Potassium 5.7 mmol/L (3.5-5.1); Sodium 136 mmol/L (137-145); Total Bilirubin 1.2 mg/dL (0.2-1.3)
[2023-09-24 18:48] LABS: Erythrocyte Sedimentation Rate 14 mm/Hr (0-30)
--- NOTE | 2023-09-25 12:16 | CT ---
EXAMINATION TYPE: CT chest w con CT DLP: 168.3 mGycm, Automated exposure control for dose reduction was used. DATE OF EXAM: 09/24/2023 11:49 AM COMPARISON: CT chest 08/12/2019 history on prior exam given is A31.9 mycobacterial infection, unspecifi ed. CT chest 09/04/2022. CLINICAL INDICATION:Female, 63 years old with history of [id number] INFECTION, UNSPECIFIED; PH H, f/u fungal infection TECHNIQUE: Multiple axial images were obtained through the chest. Sagittal and coronal reformats were created for review. Contrast used: mL of Isovue 370 with IV Contrast (None if empty) Oral contrast used: (None if empty) FINDINGS: LUNGS/ PLEURA: Same amount of fibrous scarlike infiltrate in the right lung apex. Increased groundg lass infiltrate with bronchiectasis in superior aspect of the right lower lobe. Stable left upper lobe 4.7 mm nodule, series 4, image 26. AIRWAY: Patent and unremarkable. HEART: Size within normal limits. MEDIASTINUM: No gross evidence of adenopathy. VASCULATURE: No aortic aneurysm. MUSCULOSKELETAL: No acute osseous abnormalities SOFT TISSUES/LYMPH NODES: Unremarkable. LOWER NECK: No significant findings. UPPER ABDOMEN: Cholecystectomy clips in the gallbladder fossa. No acute findings. IMPRESSION: Pleural-parenchymal and airspace disease in the right lung apex could be sequela of previous infectio n. The process in the superior aspect of the right lower lobe could be acute/subacute.
== END | disposition home or self-care (01) ==
LOC: RADCTMAIN 11:06
PROVIDERS: ATTEND Internal Medicine Critical Care Medicine
DX: A31.9 Mycobacterial infection, unspecified (principal); J98.4 Other disorders of lung
CPT/HCPCS: 80053; 85652; 85025; 86140; 71260; 36415; Q9967

== ENCOUNTER → 2023-12-11 | Outpatient (CLI) | payer MEDICARE | END | disposition home or self-care (01) | LOC: LABWHC1 11:32 | PROVIDERS: ATTEND Allergy & Immunology | DX: J45.909 Unspecified asthma, uncomplicated (principal); L30.9 Dermatitis, unspecified | CPT/HCPCS: 36415; 82785 ==

== ENCOUNTER → 2023-12-30 | Outpatient (CLI) | payer MEDICARE ==
[2023-12-30 19:51] LABS: BUN/Creat Ratio 10.91 Ratio (12.00-20.00); Carbon Dioxide 22.9 mmol/L (21.6-31.8); Chloride 94 mmol/L (96-109); Glucose 99 mg/dL (70-110); Sodium 134 mmol/L (135-145)
== END | disposition home or self-care (01) ==
LOC: LABWHC1 11:51
PROVIDERS: ATTEND Internal Medicine Nephrology
DX: N17.9 Acute kidney failure, unspecified (principal)
CPT/HCPCS: 36415; 80048

== ENCOUNTER → 2024-11-02 | Outpatient (CLI) | payer MEDICARE | END | disposition home or self-care (01) | LOC: LABWHC1 11:29 | PROVIDERS: ATTEND Internal Medicine Critical Care Medicine | DX: J47.9 Bronchiectasis, uncomplicated (principal) | CPT/HCPCS: 87070; 87116; 87205; 87206 ==

== ENCOUNTER → 2024-11-06 | Outpatient (CLI) | payer MEDICARE ==
--- NOTE | 2024-11-06 14:56 | CT ---
INDICATION: Patient age:Female; 64 years old; Reason for study: J84.9 INTERSTITIAL PULMONARY DISEASE, UNSPECIFIED; H. COMPARISON: CT chest 09/24/2023, 09/04/2022, 08/12/2019, 05/15/2018, 10/18/2009, CTA chest of 04/14/2019 TECHNIQUE: Multiple thin axial images were obtained through the chest at selected intervals. Prone and supine in spiratory along with supine expiratory images were submitted for review. Please note that due to inte rval acquisition images as defined by high-resolution CT protocol the entire lung parenchyma is not e valuated, therefore small nodular densities may not be visualized. Evaluation of vascular structures , viscera and lymphatics is limited due to lack of intravenous contrast administration. One or more C T dose reduction strategies were utilized during this examination. Total DLP 1290 mGycm. FINDINGS: LUNGS: Mild emphysematous changes. Redemonstration of predominant upper to midlung changes including bronchial wall thickening, biapical pleuroparenchymal scarring, numerous tree-in-bud opacities, focal irregular opacities, bronchiectasis, and scattered areas of nodularity measuring up to 12 mm. Overal l similar from prior exam. No honeycombing, dominant groundglass, focal consolidation or thickening o f the bronchovascular bundles. A few scattered calcific granulomas. Scattered regions of minimal air trapping on expiratory imaging. LARGE AIRWAYS: Central airways are patent. No dynamic airway collapse on expiratory imaging. PLEURA: No pleural effusion or thickening. HEART AND PERICARDIUM: Heart is normal in size. There is no pericardial effusion. No significant marquis nary artery calcifications. MEDIASTINUM AND GUADALUPE: Stable unchanged 1 cm prominent lower left paratracheal lymph node. VESSELS: The thoracic aorta is normal in course and caliber. CHEST WALL AND DIAPHRAGM: Normal. LOWER NECK: Normal. UPPER ABDOMEN: Gallbladder is surgically absent. Partial visualization of left renal cyst measuring up to 3.1 cm. No flap recommended. MUSCULOSKELETAL: No acute fracture. IMPRESSION: Upper to midlung predominant similar lung disease on background of mild COPD. There is redemonstratio n numerous tree-in-bud opacities, bronchiectasis, nodularity and irregular opacities. Correlate for o ngoing indolent atypical mycobacterial infection. No evidence of honeycombing. [facility], , 11/06/2024 2:53 PM
== END | disposition home or self-care (01) ==
LOC: RADCTMAIN 13:45
PROVIDERS: ATTEND Internal Medicine Critical Care Medicine
DX: J84.9 Interstitial pulmonary disease, unspecified (principal); J44.9 Chronic obstructive pulmonary disease, unspecified; J47.9 Bronchiectasis, uncomplicated; R91.8 Other nonspecific abnormal finding of lung field
CPT/HCPCS: 71250